=== PATIENT | male | born 1965 | race Two or more races ===

== ENCOUNTER 2024-05-24 19:31 | Inpatient (IN) | payer MEDICAID, OTHER ==
[~2024-05-24] VITALS: Ht 177.8 cm; Wt 85.6 kg
--- NOTE | 2024-05-24 19:55 | ED.PDOC ---
History of Present Illness HPI Comments 63-year-old male who came to ER via EMS due to shortness of breath. Patient, does have history of hypertension, diabetes, congestive heart failure, liver disease, end-stage renal disease currently on dialysis every Tuesday, Tuesday, and Tuesday. Patient also able to get his dialysis session yesterday because of the holidays. Few hours ago, patient is started becoming short of breath, be generalized weakness, fatigability, abdominal distention any worsening bipedal edema. Saturating 70% on room air, with a blood pressure of 90/58 mmHg Chief Complaint: Shortness of Breath Time Seen by MD: 19:55 Reviewed Notes: [place] Notes Allergies: Coded Allergies: NO KNOWN ALLERGIES (Unverified , 05/24/24) Information Source: Patient, Emergency Med Personnel Mode of Arrival: EMS Severity: Moderate Timing: Hours Duration: Since onset Prehospital treatment: Oxygen Past Medical History PAST MEDICAL HISTORY: CHF, DM, ESRD, HTN, Liver Surgical History (Other): Dialysis every Tuesday Family History Family History: Reviewed,noncontributory to illness Social History Smoker: Non-Smoker Alcohol: Denies ETOH Use Drugs: Denies Drug Use Lives In: Home Constitutional: reports: fatigue, weakness; denies: chills, diaphoresis, fever, malaise, sweats, others EENTM: denies: blurred vision, double vision, ear bleeding, ear discharge, ear drainage, ear pain, ear ringing, eye pain, eye redness, hearing loss, mouth pain, mouth swelling, nasal discharge, nose bleeding, nose congestion, nose pain, photophobia, tearing, throat pain, throat swelling, voice changes, others Respiratory: reports: SOB at rest, shortness of breath; denies: cough, h emoptysis, orthopnea, SOB with excertion, stridor, wheezing, others Cardiovascular: denies: chest pain, dizzy spells, diaphoresis, Dyspnea on exertion, edema, irregular heart beat, left arm pain, lightheadedness, palpitations, PND, syncope, others Gastrointestinal: reports: abdomen distended, abdominal pain; denies: blood streaked bowels, constipated, diarrhea, dysphagia, difficulty swallowing, hematemesis, melena, nausea, poor appetite, poor fluid intake, rectal bleeding, rectal pain, vomiting, others Genitourinary: denies: burning, dysuria, flank pain, frequency, hematuria, incontinence, penile discharge, penile sore, pain, testicle pain, testicle sw elling, urgency, others Neurological: denies: dizziness, fainting, headache, left sided numbness, left sided weakness, numbness, paresthesia, pre-existing deficit, right sided numbness, right sided weakness, seizure, speech problems, tingling, tremors, weakness, others Musculoskeletal: denies: back pain, gout, joint pain, joint swelling, muscle pain, muscle stiffness, neck pain, others Integumetry: denies: bruises, change in color, change in hair/nails, dryness, laceration, lesions, lumps, rash, wounds, others Allergic/Immunocompromised: denies: Difficulty Healing, Frequent Infections, Hives, Itching, others Hematologic/Lymphatic: denies: anemia, blood clots, easy bleeding, easy bruising, swollen glands, others Endocrine: denies: excessive hunger, excessive sweating, excessive thirst, excessive urination, flushing, intolerance to cold, intolerance to heat, unexplained weight gain, unexplained weight loss, others Psychiatric: denies: anxiety, bipolar disorder, depression, hopeless, panic disorder, schizophrenia, sleepless, suicidal, others Physical Exam General Appearance: No Apparent Distress, Normal HEENT: Normal ENT Inspection, Pharynx Normal, TMs Normal Neck: Full Range of Motion, Non-Tender, Normal, Normal Inspection Respiratory: Chest Non-Tender, Lungs Clear, No Accessory Muscle Use, No Respiratory Distress, Normal Breath Sounds Cardiovascular: No Edema, No JVD, No Murmur, No Gallop, Normal Peripheral Pulses, Regular Rate/Rhythm Breast Exam: Deferred Gastrointestinal: No Organomegaly, Non Tender, No Pulsatile Mass, Normal Bowel Sounds, Soft Genitalia: Deferred Pelvic: Deferred Rectal: Deferred Extremities: No calf tenderness, Normal capillary refill, Normal inspection, Normal range of motion, Non-tender, No pedal edema Musculoskeletal : Apperance: Normal Neurologic: Alert, hotel concierge II-XII nml as Tested, No Motor Deficits, Normal Affect, Normal Mood, No Sensory Deficits Cerebellar Function: Normal Reflexes: Normal Skin: Dry, Normal Color, Warm Lymphatic: No Adenopathy Was a procedure done? Was a procedure done?: No Differential Dx Considerations may include: Anemia, electrolyte imbalance, congestive heart failure, pneumonia, end-stage renal disease, sepsis X-Ray, Labs, Meds, VS Vital Signs Date Time Temp Pulse Resp B/P (MAP) Pulse Ox O2 Delivery O2 Flow Rate FiO2 05/24/24 19:44 77 05/24/24 19:31 97.8 77 24 90/58 (69) 95 Lab Test 05/24/24 21:08 05/24/24 21:00 Range/Units White Blood Count 5.8 4.4-10.8 10^3/uL Red Blood Count 3.31 L 4.5-5.90 10^6/uL Hemoglobin 8.0 L 13.5-17.5 g/dL Hematocrit 25.3 L 41.0-53.0 % Mean Corpuscular Volume 76.3 L 80.0-100.0 fL Mean Corpuscular Hemoglobin 24.1 L 28.0-32.0 pg Mean Corpuscular Hemoglobin Concent 31.6 L 32.0-36.0 g/dL Red Cell Distribution Width 27.6 H 11.8-14.3 % Platelet Count 224 140-450 10^3/uL Mean Platelet Volume 8.4 6.9-10.8 fL Neutrophils (%) (Auto) 82.0 H 37.0-80.0 % Lymphocytes (%) (Auto) 6.6 L 10.0-50.0 % Monocytes (%) (Auto) 9.2 0.0-12.0 % Eosinophils (%) (Auto) 1.8 0.0-7.0 % Basophils (%) (Auto) 0.4 0.0-2.0 % Neutrophils # (Auto) 4.8 1.6-8.6 10 ^3/uL Lymphocytes # (Auto) 0.4 0.4-5.4 10 ^3/uL Monocytes # (Auto) 0.5 0-1.3 10 ^3/uL Eosinophils # (Auto) 0.1 0-0.8 10 ^3/uL Basophils # (Auto) 0 0-0.2 10 ^3/uL Nucleated Red Blood Cells 0.3 % Platelet Estimate Pending Prothrombin Time 12.0 H 9.3-11.8 sec Prothrombin Time INR 1.14 0.9-1.15 Activated Partial Thromboplast Time 30.3 24.5-34.5 SEC Sodium Level 139 136-145 mmol/L Potassium Level 5.5 H 3.5-5.1 mmol/L Chloride Level 106 98-107 mmol/L Carbon Dioxide Level 25 20-31 mmol/L Anion Gap 8 5-15 Blood Urea Nitrogen 66 H 9-23 mg/dL Creatinine 6.67 H 0.700-1.30 mg/dL Glomerular Filtration Rate Calc 9 >90 mL/min BUN/Creatinine Ratio 9.9 L 10.0-20.0 Serum Glucose 82 74-106 mg/dL Calcium Level 8.4 L 8.7-10.4 mg/dL Magnesium Level 1.8 1.6-2.6 mg/dL Total Bilirubin < 0.2 L 0.2-1.0 mg/dL Aspartate Amino Transferase (AST) 22 13-40 U/L Alanine Aminotransferase (ALT) 16 7-40 U/L Alkaline Phosphatase 70 46-116 U/L Troponin I High Sensitivity 18 </=54 ng/L B-Type Natriuretic Peptide 2239.06 0-100 pg/mL Total Protein 5.4 L 5.7-8.2 g/dL Albumin 2.8 L 3.2-4.8 g/dL Lactic Acid Level 1.6 0.4-2.0 mmol/L CHEST RADIOGRAPH Indication: SOB Technique: Single frontal view of the chest was obtained COMPARISON: None FINDINGS: Lines and Tubes: Tunneled right central venous catheter in satisfactory position. Lungs: Multifocal airspace disease. Pleura: No effusion. No pneumothorax. Cardiomediastinal contours: Cardiomegaly Bones: Unremarkable IMPRESSION: Pulmonary edema and/or multifocal infection. Time of 1ST Reevaluation: 19:50 Reevaluation 1ST: Unchanged Time of 2ND Reevaluation: 22:05 Reevaluation 2ND: Unchanged Patient Education/Counseling: Diagnosis, Treatment Family Education/Counseling: No Family Present Departure 1 Departure Time of Disposition: 22:05 Impression: Primary Impression: Chronic kidney disease with end stage renal failure on dialysis Additional Impressions: Respiratory failure with hypoxia Fluid overload Disposition: ADMITTED INPATIENT Admit to: ICU Condition: Critical Discharged With: Self Critical Care Note Critical Care Time?: Yes (35 min-critical care time only) Critical care comment: Shortness of breath Total critical care time: Approximately 36 minutes Due to a high probability of clinically significant, life threatening deterioration, the patient required my highest level of preparedness to intervene emergently and I personally spent this critical care time directly and personally managing the patient. This critical care time included obtaining a hi story; examining the patient; pulse oximetry; ordering and review of studies; arranging urgent treatment with development of a management plan; evaluation of patient's response to treatment; frequent reassessment; and, discussions with other providers. This critical care time was performed to assess and manage the high probability of imminent, life-threatening deterioration that could result in multi-organ failure. It was exclusive of separately billable procedures and treating other patients. Stability Stability form required: No Heart Score Heart Score: Heart Score Response (Comments) Value History Moderate Suspicious 1 EKG Repolarization Disturb 1 Age 45-64 1 Risk Factors >3 or Hx ASHD 2 Troponin 1-2 x's Normal limit 1 Total 6 I personally scribed for JAMES KLINE MD ([email or web address]) on 05/24/24 at 19:55. Electronically submitted by Сергей Purdy ([email or web address]). I personally scribed for JAMES KLINE MD ([email or web address]) on 05/24/24 at 20:48. Electronically submitted by Сергей Purdy ([email or web address]). JAMES KLINE MD May 24, 2024 19:55
--- NOTE | 2024-05-24 20:23 | DVH ---
CHEST RADIOGRAPH Indication: SOB Technique: Single frontal view of the chest was obtained COMPARISON: None FINDINGS: Lines and Tubes: Tunneled right central venous catheter in satisfactory position. Lungs: Multifocal airspace disease. Pleura: No effusion. No pneumothorax. Cardiomediastinal contours: Cardiomegaly Bones: Unremarkable IMPRESSION: Pulmonary edema and/or multifocal infection.
[2024-05-24] MEDS: FUROSEMIDE 40 MG/4 ML VIAL IV ONE (20:45)
[2024-05-24 21:34] LABS: Basophils # (auto) 0 10 ^3/uL (0-0.2); Eosinophils # (auto) 0.1 10 ^3/uL (0-0.8); Lymphocytes # (auto) 0.4 10 ^3/uL (0.4-5.4); Monocytes # (auto) 0.5 10 ^3/uL (0-1.3); Nucleated Red Blood Cells % 0.3 %; White Blood Cell 5.8 10^3/uL (4.4-10.8)
[2024-05-24 21:35] LABS: Basophils % (auto) 0.4 % (0.0-2.0); Eosinophils % (auto) 1.8 % (0.0-7.0); Hematocrit 25.3 % (41.0-53.0); Lymphocytes % (auto) 6.6 % (10.0-50.0); Mean Corpuscular Hemoglobin 24.1 pg (28.0-32.0); Mean Corpuscular Hgb Conc. 31.6 g/dL (32.0-36.0); Mean Corpuscular Volume 76.3 fL (80.0-100.0); Monocytes % (auto) 9.2 % (0.0-12.0); Neutrophils # (auto) 4.8 10 ^3/uL (1.6-8.6); Platelet Count (auto) 224 10^3/uL (140-450); Red Blood Cells 3.31 10^6/uL (4.5-5.90)
[2024-05-24 21:40] LABS: Alanine Aminotransferase 16 U/L (7-40); Alkaline Phosphatase 70 U/L (46-116); Anion Gap 8 (5-15); Aspartate Aminotransferase 22 U/L (13-40); BUN/Creatinine Ratio 9.9 (10.0-20.0); Carbon Dioxide 25 mmol/L (20-31); Chloride 106 mmol/L (98-107); Glucose 82 mg/dL (74-106); Magnesium 1.8 mg/dL (1.6-2.6); Sodium 139 mmol/L (136-145)
[2024-05-24 21:42] LABS: Albumin 2.8 g/dL (3.2-4.8); Bilirubin, Total < 0.2 mg/dL (0.2-1.0); Blood Urea Nitrogen 66 mg/dL (9-23); Calcium 8.4 mg/dL (8.7-10.4); Potassium 5.5 mmol/L (3.5-5.1); Total Protein 5.4 g/dL (5.7-8.2)
[2024-05-24 21:43] LABS: INR 1.14 (0.9-1.15); Partial Thromboplastin Time 30.3 SEC (24.5-34.5); Red Cell Distribution Width 27.6 % (11.8-14.3)
[2024-05-24 23:00] VITALS: PULSE 76; RESP 22; O2SAT 100
[2024-05-24 23:08] LABS: Anisocytosis Slight; Hypochromia Moderate
--- NOTE | 2024-05-24 23:09 | DVHHPRES ---
History of Present Illness Resident Creating Document: BECCA NIELSEN History of Present Illness This is a 58-year-old male with past medical history of hypertension, type 2 diabetes mellitus, Liver cirrhosis likely due to HEP C, end-stage renal disease recently started on hemodialysis (Tuesday, Tuesday and Tuesday), suspected CHF, presented to the ED due to acute shortness of breath and abdominal tenderness. Patient states that his last hemodialysis was last Tuesday (1week ago). The patient states that 1 day ago he started presenting acute periumbilical epi gastric pain rated as 4/10 on the pain scale associated with mild shortness of breath. The patient was recently discharged from our facility on May 17 where paracentesis was performed and 7 L of fluid were removed at that time. the patient has been admitted multiple times due to similar symptoms. We will admit the patient for further assessment and management. Cardiovascular: CHF, HTN Renal/: Chronic renal insuff (End-stage renal disease on hemodialysis) Endocrine: Diabetes Past Surgical History: None Family History: None Smoke: <1 pack per day ALCOHOL: none Drugs: None Lives: with Family Domestic Violence: Neg Review of Systems Constitutional: Yes: Malaise; No: Fever, Chills, Sweats, Weakness, Other Eyes: No: Pain, Vision change, Conjunctivae inflammation, Eyelid inflammation, Other, Redness ENT: No: Ear pain, Ear discharge, Nose pain, Nose discharge, Nose congestion, Mouth pain, Mouth swelling, Throat pain, Throat swelling, Other Respiratory: Cough, Shortness of breath, SOB with excertion; No: Dry, Wheezing, Hemoptysis, Pleuritic Pain, Sputum, Wheezing, Other Cardiovascular: Edema; No: Chest Pain, Palpitations, Orthopnea, Paroxysmal Noc. Dyspnea, Lt Headedness, Other Gastrointestinal: Abdominal Pain; No: Nausea, Vomiting, Diarrhea, Constipation, Melena, Hematochezia, Other Genitourinary: No Dysuria, No Frequency, No Incontinence, No Hematuria, No Retention, No Other Musculoskeletal: No: other, neck pain, shoulder pain, arm pain, back pain, hand pain, leg pain, foot pain Skin: No: Rash, Lesions, Jaundice, Bruising, Other Neurological: Weakness, Confusion; No: Numbness, Incoordination, Change in speech, Seizures, Other Allergies: Coded Allergies: NO KNOWN ALLERGIES (Unverified , 05/24/24) Exam Vital Signs Vital Signs Date Time Temp Pulse Resp B/P (MAP) Pulse Ox O2 Delivery O2 Flow Rate FiO2 05/24/24 19:44 77 05/24/24 19:31 97.8 24 90/58 (69) 95 General Appearance: Alert, Oriented X3, moderate distress HEENT: Atraumatic, PERRLA, EOMI, Mucous membr. moist/pink Respiratory: Normal air movement Cardiovascular: Regular rate, Normal S1, No murmurs Abdominal: Normal bowel sounds, Other (Abdominal distention with periumbilical and epigastric pain to palpation) Extremities: No clubbing, No cyanosis, Normal pulses, Other (Bilateral lower extremity edema) Skin: No rashes, No breakdown, No significant lesion Neuro: Normal gait, Strength at 5/5 X4 ext, Normal tone, Cranial nerves 3-12 NL, Reflexes 2+ Psych/Mental Status: Mood NL, Other (Alert but slightly confused but follow commands) Labs/Xrays Labs Test 05/24/24 22:00 05/24/24 21:08 05/24/24 21:00 Range/Units Troponin I High Sensitivity 18 </=54 ng/L White Blood Count 5.8 4.4-10.8 10^3/uL Red Blood Count 3.31 L 4.5-5.90 10^6/uL Hemoglobin 8.0 L 13.5-17.5 g/dL Hematocrit 25.3 L 41.0-53.0 % Mean Corpuscular Volume 76.3 L 80.0-100.0 fL Mean Corpuscular Hemoglobin 24.1 L 28.0-32.0 pg Mean Corpuscular Hemoglobin Concent 31.6 L 32.0-36.0 g/dL Red Cell Distribution Width 27.6 H 11.8-14.3 % Platelet Count 224 140-450 10^3/uL Mean Platelet Volume 8.4 6.9-10.8 fL Neutrophils (%) (Auto) 82.0 H 37.0-80.0 % Lymphocytes (%) (Auto) 6.6 L 10.0-50.0 % Monocytes (%) (Auto) 9.2 0.0-12.0 % Eosinophils (%) (Auto) 1.8 0.0-7.0 % Basophils (%) (Auto) 0.4 0.0-2.0 % Neutrophils # (Auto) 4.8 1.6-8.6 10 ^3/uL Lymphocytes # (Auto) 0.4 0.4-5.4 10 ^3/uL Monocytes # (Auto) 0.5 0-1.3 10 ^3/uL Eosinophils # (Auto) 0.1 0-0.8 10 ^3/uL Basophils # (Auto) 0 0-0.2 10 ^3/uL Nucleated Red Blood Cells 0.3 % Prothrombin Time 12.0 H 9.3-11.8 sec Prothrombin Time INR 1.14 0.9-1.15 Activated Partial Thromboplast Time 30.3 24.5-34.5 SEC Sodium Level 139 136-145 mmol/L Potassium Level 5.5 H 3.5-5.1 mmol/L Chloride Level 106 98-107 mmol/L Carbon Dioxide Level 25 20-31 mmol/L Anion Gap 8 5-15 Blood Urea Nitrogen 66 H 9-23 mg/dL Creatinine 6.67 H 0.700-1.30 mg/dL Glomerular Filtration Rate Calc 9 >90 mL/min BUN/Creatinine Ratio 9.9 L 10.0-20.0 Serum Glucose 82 74-106 mg/dL Calcium Level 8.4 L 8.7-10.4 mg/dL Magnesium Level 1.8 1.6-2.6 mg/dL Total Bilirubin < 0.2 L 0.2-1.0 mg/dL Aspartate Amino Transferase (AST) 22 13-40 U/L Alanine Aminotransferase (ALT) 16 7-40 U/L Alkaline Phosphatase 70 46-116 U/L B-Type Natriuretic Peptide 2239.06 0-100 pg/mL Total Protein 5.4 L 5.7-8.2 g/dL Albumin 2.8 L 3.2-4.8 g/dL Lactic Acid Level 1.6 0.4-2.0 mmol/L Assessment/Plan Assessment/Plan Assessment/Plan Acute hypoxic respiratory failure likely due to volume overload in the setting of missed HD and decompensated liver cirrhosis Possible Gram +/- bacterial pneumonia Acute abdominal pain with abdominal distention likely due to decompensated liver cirrhosis Acute metabolic encephalopathy, hepatic encephalopathy -MELD NA score 22 points, Child-mills score 10 points -patient recently started on HD (TUE-TUE-TUE) missed sessions (Last one 7 days ago) -Initial chest x ray showing pulm vasc congestion with likely interstitial infiltrates on right middle lobe -Ordered abd/pelvic CT scan -ordered ammonia levels, came back elevated at 44 -Ordered sputum culture/gram stain -Start midodrine 10mg TID -Start albumin 25gr -Start ceftriaxone IV 2 gr -Start azithromycin IV -start lactulose 30 cc b.i.d. -start spironolactone 25 mg daily -start furosemide 40 mg IV daily -Waiting for imaging studies for possible paracentesis Chronic microcytic hypochromic anemia likely due to ESRD -hemoglobin was 8.0 -ordered iron panel and ferritin -monitor H&H End-stage renal disease on hemodialysis (Tuesday, Tuesday, Tuesday) -last hemodialysis was seven days ago on Tuesday, patient missed couple of hemodialysis sessions -last creatinine was 6.67 and BUN 66 -consulted nephrology for hemodialysis Ruled out CHF -echocardiogram performed on May 15, 2024 showed an LVEF of 55% with a grade 1 diastolic dysfunction -BNP was 2239 most likely in the setting of volume overload Hyperkalemia in the setting of ESRD -potassium was 5.5 -hyperkalemia treatment with albuterol, insulin and dextrose. -monitor electrolytes closely Goals of care discussed with the patient at bedside, full code Plan discussed with Dr. Latham Plan discussed with: Patient My Orders Orders - BECCA NIELSEN RESIDENT Procedure Category Date Status Time Urinalysis LAB 05/24/24 Logged 22:35 *Dr. Shelton Armenta CONS 05/24/24 Transmitted -[place] 22:57 Ammonia LAB 05/24/24 Logged 22:57 Stool Occult Blood LAB 05/24/24 Logged 22:57 Ct Ab Pel Wo Con-No CT 05/24/24 Logged Oral Or Iv 22:57 Admit ADMIT 05/24/24 Transmitted 23:01 Code Status CODE 05/24/24 Transmitted 23:01 Vital Signs IZA 05/24/24 In Process 23:01 Review Orders With IZA 05/24/24 In Process Adm 23:01 Encourage Activity As IZA 05/24/24 In Process Tolerate 23:01 Npo (Nothing By DIET 05/25/24 Transmitted Mouth) Diet Breakfast Notify Of Changes IZA 05/24/24 In Process From Base 23:01 Advance Directive IZA 1/2/25 In Process 23:01 Echo 2d Mode Cardiac US 05/24/24 Logged DOP 23:01 Lipid Panel LAB 05/24/24 Logged 23:01 Patient Condition ORDERS 05/24/24 Transmitted 23:01 Allergies IZA 05/24/24 In Process 23:01 Hydrocodone-Acet PHA 05/24/24 Logged 5/325mg Tab ([place] 23:15 Drug Screen LAB 05/24/24 Logged 23:01 Hemoglobin A1c LAB 05/24/24 Logged 23:01 Iron Panel LAB 05/24/24 Transmitted 23:06 Ferritin LAB 05/24/24 Transmitted 23:06 Drug Screen LAB 05/24/24 Transmitted 23:07 Date of Service: May 24, 2024 Billing Provider: RANDALL LATHAM MD Common Visit Codes: [id number] INP/OBS CARE (HIGH) BECCA NIELSEN RESIDENT May 24, 2024 23:09 RANDALL LATHAM MD May 28, 2024 19:50
[2024-05-24 23:10] LABS: Ovalocytes MODE; Platelet Estimate Adequate; Tear Drop Cells FEW
[2024-05-24 23:59] LABS: Triglycerides 101 mg/dL (< 150)
[2024-05-25] VITALS (8 sets, daily range): BP systolic 90–124; BP diastolic 52–72; PULSE 62–80; RESP 10–20; TEMP 98.1; O2SAT 95–100
[2024-05-25] LABS: LDL Cholesterol 42 mg/dL (< 100)
[2024-05-25 00:01] LABS: Cholesterol 72 mg/dL (< 200)
[2024-05-25 00:02] LABS: % Iron Saturation 6.1 % (20-55)
[2024-05-25 00:07] LABS: HDL Cholesterol 21 mg/dL (40-59)
[2024-05-25] MEDS: cefTRIAXone 1GM/50ML D5W 50 ML IV ONE (00:51)
[2024-05-25] MEDS: MIDODRINE HCL 10 MG TAB PO SCH (01:15)
[2024-05-25] MEDS ORDERED: LACTULOSE 20Gm/30ML SOLN PO SCH (01:45)
[2024-05-25] MEDS: InsuLIN REG 1unit/0.01ml Soln (100units/ml) IV ONE ×2 (02:00→10:53)
[2024-05-25] MEDS: AZITHROMYCIN 500MG/ 250ML 250 ML IV ONE (02:03)
[2024-05-25] MEDS: ALBUMIN 25% 100 ML IV ONE ×3 (02:12→15:54)
[2024-05-25] MEDS: ALBUTEROL SULF 2.5 MG/0.5ML(0.5%) NEB SOLN NEB ONE (02:19)
--- NOTE | 2024-05-25 02:19 | DVH ---
Exam: CT CT AB PEL WO CON-NO ORAL OR IV History: acute abdominal pain r/o ascites Comparison Study: None available at time of dictation. Technique: Multidetector spiral CT of the abdomen was performed from lung bases to pubic symphysis. Imaging was performed without IV contrast. Axial, coronal and sagittal multiplanar reformats were ob tained from the axial data set by the technologist. Radiation Dose : 1. Abdomen/Pelvis: CTDIvol 23 mGy, DLP 1478 mGy*cm. Findings: Evaluation of solid organs is limited due to lack of intravenous contrast use. Lung Bases: Bilateral posterior lower lobe consolidations with air bronchograms. Liver: The liver is normal in size. No focal lesions. Nodular contour Gallbladder and Biliary Tree: Unremarkable Spleen: Splenomegaly. Pancreas: The pancreas is grossly normal in appearance. Adrenal Glands: Unremarkable Kidneys: Kidneys are grossly normal without calculi or hydronephrosis. Bladder: Grossly unremarkable for degree of distention. Bowel: The stomach is grossly normal in appearance. Diffuse colonic wall thickening. Diffuse small josef wel wall thickening. The appendix is not visualized; however, no secondary findings of acute appendic itis identified. Ascites: Moderate diffuse ascites. Lymphadenopathy: No mesenteric, retroperitoneal or periportal lymphadenopathy. Abdominal Wall and Mesentery: Moderate anasarca.. Vasculature: The visualized abdominal aorta is normal in size and caliber. Evaluation of abdominal a nd pelvic vessels is limited due to lack of intravenous contrast. Pelvic Organs: Unremarkable Musculoskeletal: No aggressive focal bony lesions, acute fractures or dislocation. IMPRESSION: Cirrhosis with sequelae of portal hypertension. Moderate diffuse anasarca and ascites. Diffuse colonic and small bowel wall thickening most likely du e to portal enterocolopathy and less likely due to infectious / inflammatory process. Bilateral posterior lower lobe consolidation with air bronchograms concerning for pneumonia END IMPRESSION:
[2024-05-25] MEDS: FUROSEMIDE 40 MG/4 ML VIAL IV SCH (02:30)
[2024-05-25] MEDS: DEXTROSE (50%) 50ML SYRG IV ONE ×3 (02:36→11:09)
[2024-05-25] MEDS: SPIRONOLACTONE 25 MG TAB PO SCH (02:40)
[2024-05-25] MEDS ORDERED: NOREPINEPHRINE 8 MG/250ML KIT 250 ML IV ONE (03:14)
[2024-05-25] MEDS: NOREPINEPHRINE 8 MG/250ML KIT 250 ML IV SCH (03:37)
[2024-05-25 04:38] LABS: Base Excess -4.9 mmol/L (-2.0-3.0)
[2024-05-25] MEDS: LACTULOSE 20Gm/30ML SOLN NG SCH (06:00)
--- NOTE | 2024-05-25 06:14 | ECG ---
[facility] Test Date: 2024-05-24 Test Time: 19:44:49 Pat Name: RONEY ROWAN Department: ER Room: [address] [place] [address] Gender: M Data Developer: ELENI : 1965 Requested By: JAMES KLINE Order Number: [id number] Reading MD: Navid Benjamin Measurements Intervals [place] Rate: 77 P: 45 DC: 139 QRS: 42 QRSD: 77 T: 5 QT: 355 QTc: 402 Interpretive Statements Sinus rhythm Low voltage, extremity leads Electronically Signed On 05-25-2024 12:09:32 PST by Navid Benjamin Please click the below link to view image of tracing.
[2024-05-25 07:51] LABS: Base Excess -3.9 mmol/L (-2.0-3.0)
--- NOTE | 2024-05-25 07:57 | DVH ---
ULTRASOUND ABDOMEN limited, 4 QUADRANTS INDICATION: FLUID CHECK FOR POSSIBLE PARACENTESIS Evaluate for ascites. TECHNIQUE: The four quadrants of the abdomen were scanned in hamm-scale to assess for the presence of ascites. N o solid organ assessment was performed. FINDINGS/IMPRESSIONS: There is small to moderate volume ascites in all 4 abdominal quadrants. Bilateral pleural effusions are present. HS:Y
[2024-05-25 08:05] LABS: Alanine Aminotransferase 16 U/L (7-40); Alkaline Phosphatase 64 U/L (46-116); Anion Gap 7 (5-15); Aspartate Aminotransferase 23 U/L (13-40); BUN/Creatinine Ratio 9.9 (10.0-20.0); Carbon Dioxide 26 mmol/L (20-31); Chloride 105 mmol/L (98-107); Sodium 138 mmol/L (136-145)
[2024-05-25 08:06] LABS: Basophils # (auto) 0 10 ^3/uL (0-0.2); Eosinophils # (auto) 0.2 10 ^3/uL (0-0.8); Hematocrit 26.6 % (41.0-53.0); Hemoglobin 8.3 g/dL (13.5-17.5); Lymphocytes # (auto) 0.4 10 ^3/uL (0.4-5.4); Monocytes # (auto) 0.5 10 ^3/uL (0-1.3); Total Protein 5.8 g/dL (5.7-8.2); White Blood Cell 5.1 10^3/uL (4.4-10.8)
[2024-05-25 08:08] LABS: Basophils % (auto) 0.3 % (0.0-2.0); Eosinophils % (auto) 3.1 % (0.0-7.0); Lymphocytes % (auto) 7.5 % (10.0-50.0); Mean Corpuscular Hemoglobin 24.1 pg (28.0-32.0); Mean Corpuscular Hgb Conc. 31.3 g/dL (32.0-36.0); Mean Corpuscular Volume 76.8 fL (80.0-100.0); Monocytes % (auto) 9.6 % (0.0-12.0); Neutrophils % (auto) 79.5 % (37.0-80.0); Nucleated Red Blood Cells % 0.3 %; Platelet Count (auto) 270 10^3/uL (140-450); Red Blood Cells 3.47 10^6/uL (4.5-5.90)
[2024-05-25 08:14] LABS: Red Cell Distribution Width 27.7 % (11.8-14.3)
[2024-05-25 08:19] LABS: Albumin 3.1 g/dL (3.2-4.8); Bilirubin, Total 0.2 mg/dL (0.2-1.0); Blood Urea Nitrogen 68 mg/dL (9-23); Calcium 8.4 mg/dL (8.7-10.4); Glucose 52 mg/dL (74-106)
[2024-05-25 08:22] LABS: Potassium 5.7 mmol/L (3.5-5.1)
--- NOTE | 2024-05-25 09:36 | DVHINCON2 ---
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 HE was discharged to continue outpatient HD for EVE. His other hx includes etoh cirrhosis, hep C, thrombocytopina, anemia and ascites w/ previous paracentesis. He comes complaining of SOB after missing several days of dialysis. He is currently on biPAP Allergies: Coded Allergies: NO KNOWN ALLERGIES (Unverified , 05/24/24) Current Medications Current Medications Medications (Trade) Dose Ordered Sig/Debra Route PRN Reason Start Time Stop Time Status Last Admin Acetaminophen/ Hydrocodone Bitart ([place] 5/325MG Tab) 1 tab Q4HP PRN PO MODERATE PAIN (4-6 PAIN SCALE) 05/24/24 23:15 Midodrine (Proamatine Tablet) 10 mg TID@0600,1200,1800 PO 05/25/24 01:15 Lactulose 30 ml BID PO 05/25/24 01:45 05/25/24 03:33 DC Ceftriaxone Sodium/Dextrose 50 ml @ 50 mls/hr DAILY IV 05/26/24 10:00 Azithromycin 250 ml @ 125 mls/hr DAILY IV 05/25/24 10:00 Furosemide (Lasix Injection) 40 mg DAILY IV 05/25/24 02:30 05/25/24 02:30 Spironolactone (Aldactone) 25 mg DAILY PO 05/25/24 02:40 Norepinephrine Bitartrate 250 ml @ 3.75 mls/hr Q24H IV 05/25/24 03:15 05/25/24 03:37 Lactulose 30 ml Q6HR NG 05/25/24 06:00 05/25/24 06:00 Pantoprazole Sodium (Protonix) 40 mg BID IV 05/25/24 10:00 Review of Systems SOB H&P Exam Vital Signs/I&O Vital Sign Date Time Temp Pulse Resp B/P (MAP) Pulse Ox O2 Delivery O2 Flow Rate FiO2 05/25/24 08:18 72 124/72 96 Facial BiPAP Mask 45 05/25/24 07:00 25 05/25/24 02:19 15 05/24/24 23:00 98.1 98.1 Intake and Output 05/24/24 05/25/24 19:00 07:00 Intake Total 150 ml Balance 150 ml Intake IV Total 150 ml Physical Exam young male in respiratory distress on bipap distended abd + JVD rrr 2+ pitting edema Labs/Diagnostic Data Labs/Diagnostic Data Laboratory Tests Test 05/25/24 07:41 05/25/24 07:05 05/25/24 03:53 05/24/24 23:20 Range/Units Blood Gas Specimen Type Arterial Arterial Blood Gas Sample Site Left radial Right radial Blood Gas Patient Temperature 37.0 37.0 Arterial Blood Date Drawn [id number] Arterial Blood pH 7.250 L 7.181 *L 7.350-7.450 Arterial Blood Partial Pressure CO2 54.6 H 65.1 *H 35.0-48.0 mmHg Arterial Blood Partial Pressure O2 60.4 L 74.4 L 83.0-108.0 mmHg Arterial Blood HCO3 23.4 23.8 21.0-28.0 mmol/L Arterial Blood Oxygen Saturation 87.7 L 91.9 L 94.0-98.0 % Arterial Blood Base Excess -3.9 L -4.9 L -2.0-3.0 mmol/L Arterial Blood Oxyhemoglobin 86.4 L 90.9 L 94.0-98.0 % Arterial Blood Carboxyhemoglobin 0.7 0.6 0.5-1.5 % Arterial Blood Methemoglobin 0.8 0.5 0.0-1.5 % Parth Test Yes Yes Blood Gas Total Hemoglobin 9.00 L 9.70 L 13.5-17.5 g/dL Blood Gas Set Respiration Rate 12.0 Blood Gas Modality Mask - bipap Nasal cannula FiO2 % 45.0 36.0 Blood Gas EPAP 6 Blood Gas IPAP 18 White Blood Count 5.1 4.4-10.8 10^3/uL Red Blood Count 3.47 L 4.5-5.90 10^6/uL Hemoglobin 8.3 L 13.5-17.5 g/dL Hematocrit 26.6 L 41.0-53.0 % Mean Corpuscular Volume 76.8 L 80.0-100.0 fL Mean Corpuscular Hemoglobin 24.1 L 28.0-32.0 pg Mean Corpuscular Hemoglobin Concent 31.3 L 32.0-36.0 g/dL Red Cell Distribution Width 27.7 H 11.8-14.3 % Platelet Count 270 140-450 10^3/uL Mean Platelet Volume 7.7 6.9-10.8 fL Neutrophils (%) (Auto) 79.5 37.0-80.0 % Lymphocytes (%) (Auto) 7.5 L 10.0-50.0 % Monocytes (%) (Auto) 9.6 0.0-12.0 % Eosinophils (%) (Auto) 3.1 0.0-7.0 % Basophils (%) (Auto) 0.3 0.0-2.0 % Neutrophils # (Auto) 4.0 1.6-8.6 10 ^3/uL Lymphocytes # (Auto) 0.4 0.4-5.4 10 ^3/uL Monocytes # (Auto) 0.5 0-1.3 10 ^3/uL Eosinophils # (Auto) 0.2 0-0.8 10 ^3/uL Basophils # (Auto) 0 0-0.2 10 ^3/uL Nucleated Red Blood Cells 0.3 % Sodium Level 138 136-145 mmol/L Potassium Level 5.7 *H 3.5-5.1 mmol/L Chloride Level 105 98-107 mmol/L Carbon Dioxide Level 26 20-31 mmol/L Anion Gap 7 5-15 Blood Urea Nitrogen 68 H 9-23 mg/dL Creatinine 6.86 H 0.700-1.30 mg/dL Glomerular Filtration Rate Calc 9 >90 mL/min BUN/Creatinine Ratio 9.9 L 10.0-20.0 Serum Glucose 52 L 74-106 mg/dL Calcium Level 8.4 L 8.7-10.4 mg/dL Total Bilirubin 0.2 0.2-1.0 mg/dL Aspartate Amino Transferase (AST) 23 13-40 U/L Alanine Aminotransferase (ALT) 16 7-40 U/L Alkaline Phosphatase 64 46-116 U/L Ammonia 48 H 44 H 11-32 umol/L Total Protein 5.8 5.7-8.2 g/dL Albumin 3.1 L 3.2-4.8 g/dL Blood Gas Liter Flow 4.00 Blood Gas Critical Value Read Back Yes Blood Gas Notified Whom Beni taylor md Blood Gas Notified Time [id number] Blood Gas Notified By Jason bronson rrt Hemoglobin A1c 7.1 H <5.7 % A1C Iron Level 11 L 65-175 ug/dL Total Iron Binding Capacity 180 L 250-425 ug/dL Percent Iron Saturation 6.1 L 20-55 % Ferritin 36.3 22-322 ng/mL Triglycerides Level 101 < 150 mg/dL Cholesterol Level 72 < 200 mg/dL LDL Cholesterol 42 < 100 mg/dL HDL Cholesterol 21 L 40-59 mg/dL Test 05/24/24 22:00 05/24/24 21:08 05/24/24 21:00 Range/Units Troponin I High Sensitivity 18 18 </=54 ng/L White Blood Count 5.8 4.4-10.8 10^3/uL Red Blood Count 3.31 L 4.5-5.90 10^6/uL Hemoglobin 8.0 L 13.5-17.5 g/dL Hematocrit 25.3 L 41.0-53.0 % Mean Corpuscular Volume 76.3 L 80.0-100.0 fL Mean Corpuscular Hemoglobin 24.1 L 28.0-32.0 pg Mean Corpuscular Hemoglobin Concent 31.6 L 32.0-36.0 g/dL Red Cell Distribution Width 27.6 H 11.8-14.3 % Platelet Count 224 140-450 10^3/uL Mean Platelet Volume 8.4 6.9-10.8 fL Neutrophils (%) (Auto) 82.0 H 37.0-80.0 % Lymphocytes (%) (Auto) 6.6 L 10.0-50.0 % Monocytes (%) (Auto) 9.2 0.0-12.0 % Eosinophils (%) (Auto) 1.8 0.0-7.0 % Basophils (%) (Auto) 0.4 0.0-2.0 % Neutrophils # (Auto) 4.8 1.6-8.6 10 ^3/uL Lymphocytes # (Auto) 0.4 0.4-5.4 10 ^3/uL Monocytes # (Auto) 0.5 0-1.3 10 ^3/uL Eosinophils # (Auto) 0.1 0-0.8 10 ^3/uL Basophils # (Auto) 0 0-0.2 10 ^3/uL Nucleated Red Blood Cells 0.3 % Platelet Estimate Adequate Red Blood Cell Morphology Hypochromasia (manual) Moderate Anisocytosis (manual) Slight Microcytosis Slight Tear Drop Cells Few Ovalocytes Mode Beatriz Cells Few Schistocytes Few Prothrombin Time 12.0 H 9.3-11.8 sec Prothrombin Time INR 1.14 0.9-1.15 Activated Partial Thromboplast Time 30.3 24.5-34.5 SEC Sodium Level 139 136-145 mmol/L Potassium Level 5.5 H 3.5-5.1 mmol/L Chloride Level 106 98-107 mmol/L Carbon Dioxide Level 25 20-31 mmol/L Anion Gap 8 5-15 Blood Urea Nitrogen 66 H 9-23 mg/dL Creatinine 6.67 H 0.700-1.30 mg/dL Glomerular Filtration Rate Calc 9 >90 mL/min BUN/Creatinine Ratio 9.9 L 10.0-20.0 Serum Glucose 82 74-106 mg/dL Calcium Level 8.4 L 8.7-10.4 mg/dL Magnesium Level 1.8 1.6-2.6 mg/dL Total Bilirubin < 0.2 L 0.2-1.0 mg/dL Aspartate Amino Transferase (AST) 22 13-40 U/L Alanine Aminotransferase (ALT) 16 7-40 U/L Alkaline Phosphatase 70 46-116 U/L B-Type Natriuretic Peptide 2239.06 0-100 pg/mL Total Protein 5.4 L 5.7-8.2 g/dL Albumin 2.8 L 3.2-4.8 g/dL Lactic Acid Level 1.6 0.4-2.0 mmol/L Assessment EVE on Ckd curently on dialysis b/c not recovered noncompliance with dialysis hyperkalemia CHF decompensated cirrhosis anemia due to iron deficiency fluid overload ascites pending para lactulose HD today, 3L fluid removal, 2K bath albumin for support epogen, IV iron x 5 days fluid restrict, low salt renal diet phos binder Plan discussed with: Patient NATALIYAElKIERA MD May 25, 2024 09:36
[2024-05-25] MEDS: CALCIUM GLUC 1,000mg/50ml-NS 50 ML IV ONE (10:11)
[2024-05-25] MEDS: SODIUM ZIRCONIUM CYCL 10 GM PAK PO ONE (10:54)
[2024-05-25] MEDS: PANTOPRAZOLE 40 MG/10 ML VIAL INJ IV SCH (10:54)
[2024-05-25] MEDS ORDERED: DEXTROSE 50% SYRINGE 50 ML IV ONE (11:09)
[2024-05-25] MEDS: DEXTROSE 10% 1,000 ML IV SCH (11:30)
--- NOTE | 2024-05-25 11:34 | DVH ---
US PARACENTESIS, HISTORY: ASCITES PROCEDURE: Informed consent was obtained. The patient was placed in supine position. A limited locali zation ultrasound of the abdomen was obtained, and the skin site over the largest pocket of fluid was marked and entry site was prepped with chlorhexidine which was allowed to dry and draped in the usua l sterile fashion. Time out was performed. Following administration of 1% lidocaine local anesthetic, a 5 [place] centesis needle catheter was percutaneously inserted into the peritoneal collection until fluid was aspirated. The catheter was advanced into the fluid collection and the needle removed. Abo [place] 6000 cc of fluid was aspirated and specimen sent for appropriate cultures/cytology/cultures and cy tology. The catheter was then removed and a sterile dressing applied. No immediate complication was identified. FINDINGS: Limited ultrasound imaging demonstrates moderate ascites. Aspirated fluid was clear and ser ous. IMPRESSION: US-guided paracentesis with 6L removed.
[2024-05-25 11:38] LABS: Base Excess -4.9 mmol/L (-2.0-3.0)
[2024-05-25] MEDS ORDERED: NALOXONE HCL 0.4 MG/ML VIAL ONE (11:45)
[2024-05-25] MEDS: NALOXONE HCL 0.4 MG/ML VIAL IV ONE (11:46)
[2024-05-25] MEDS: SODIUM CHL 0.9% 1000 ML BAG XX ONE (12:02)
[2024-05-25] MEDS: AZITHROMYCIN 500MG/ 250ML 250 ML IV SCH (12:31)
--- NOTE | 2024-05-25 12:31 | DVH ---
CHEST RADIOGRAPH Indication: SOB Technique: Single frontal view of the chest was obtained COMPARISON: XY CHEST PORTABLE on DOS: 05/24/24 FINDINGS: Lines and Tubes: Right tunneled central venous catheter in satisfactory position. Lungs: Multifocal airspace disease. Pleura: No effusion. No pneumothorax. Cardiomediastinal contours: Unremarkable Bones: Unremarkable IMPRESSION: Multifocal airspace disease versus pulmonary vascular congestion.
--- NOTE | 2024-05-25 12:32 | DVHINCON2 ---
GI Consult Consult Note GI consult note Date of Consultation: 05/25/2024 Chief Complaint: Decompensated liver cirrhosis with hepatic encephalopathy Referring Physician: Dr. Stokes H&P: 58-year-old male presented to ER with acute shortness of breath Patient has history of hypertension DM liver cirrhosis likely due to hepatitis-C , ESRD on hemodialysis, which patient has missed for one-week Patient on BiPAP machine, history from chart and residents at bedside Patient had given a history of periumbilical to epigastric pain. No nausea or vomiting. No history of hematemesis SP paracentesis 6L removed. SP paracentesis May 17, 7L removed Past Medical History: Cardiovascular: CHF, HTN Renal/: Chronic renal insuff (End-stage renal disease on hemodialysis) Endocrine: Diabetes Past Surgical History: None per chart Social History: Smoke: <1 pack per day ALCOHOL: none Drugs: None Lives: with Family Family History: Noncontributory Review of Systems: Constitutional: no fever, chill, weight loss HEENT: no eye pain, no hearing loss, no oral lesion, no scleral icterus Heart: no chest pain, no chest pressure Lung: no cough, no dyspnea with exertion Abdomen: see HPI Physical exam: General: Patient on BiPAP Chest: lung lovelace clear to auscultation Heart: RRR, no murmur Abdomen: Mild-distended, +BS Labs: Labs Test 05/25/24 11:32 05/25/24 10:35 05/25/24 07:05 05/25/24 03:53 Range/Units Blood Gas Specimen Type Arterial Blood Gas Sample Site Right radial Blood Gas Patient Temperature 37.0 Arterial Blood Date Drawn [id number] Arterial Blood pH 7.259 L 7.350-7.450 Arterial Blood Partial Pressure CO2 50.4 H 35.0-48.0 mmHg Arterial Blood Partial Pressure O2 105.5 83.0-108.0 mmHg Arterial Blood HCO3 22.1 21.0-28.0 mmol/L Arterial Blood Oxygen Saturation 97.2 94.0-98.0 % Arterial Blood Base Excess -4.9 L -2.0-3.0 mmol/L Arterial Blood Oxyhemoglobin 95.5 94.0-98.0 % Arterial Blood Carboxyhemoglobin 0.8 0.5-1.5 % Arterial Blood Methemoglobin 0.9 0.0-1.5 % Parth Test Yes Blood Gas Total Hemoglobin 8.80 L 13.5-17.5 g/dL Blood Gas Set Respiration Rate 12.0 Blood Gas Modality Mask - bipap FiO2 % 45.0 Blood Gas EPAP 6 Blood Gas IPAP 18 White Blood Count 5.1 4.4-10.8 10^3/uL Red Blood Count 3.47 L 4.5-5.90 10^6/uL Hemoglobin 8.3 L 13.5-17.5 g/dL Hematocrit 26.6 L 41.0-53.0 % Mean Corpuscular Volume 76.8 L 80.0-100.0 fL Mean Corpuscular Hemoglobin 24.1 L 28.0-32.0 pg Mean Corpuscular Hemoglobin Concent 31.3 L 32.0-36.0 g/dL Red Cell Distribution Width 27.7 H 11.8-14.3 % Platelet Count 270 140-450 10^3/uL Mean Platelet Volume 7.7 6.9-10.8 fL Neutrophils (%) (Auto) 79.5 37.0-80.0 % Lymphocytes (%) (Auto) 7.5 L 10.0-50.0 % Monocytes (%) (Auto) 9.6 0.0-12.0 % Eosinophils (%) (Auto) 3.1 0.0-7.0 % Basophils (%) (Auto) 0.3 0.0-2.0 % Neutrophils # (Auto) 4.0 1.6-8.6 10 ^3/uL Lymphocytes # (Auto) 0.4 0.4-5.4 10 ^3/uL Monocytes # (Auto) 0.5 0-1.3 10 ^3/uL Eosinophils # (Auto) 0.2 0-0.8 10 ^3/uL Basophils # (Auto) 0 0-0.2 10 ^3/uL Nucleated Red Blood Cells 0.3 % Sodium Level 138 136-145 mmol/L Potassium Level 5.7 *H 3.5-5.1 mmol/L Chloride Level 105 98-107 mmol/L Carbon Dioxide Level 26 20-31 mmol/L Anion Gap 7 5-15 Blood Urea Nitrogen 68 H 9-23 mg/dL Creatinine 6.86 H 0.700-1.30 mg/dL Glomerular Filtration Rate Calc 9 >90 mL/min BUN/Creatinine Ratio 9.9 L 10.0-20.0 Serum Glucose 52 L 74-106 mg/dL Calcium Level 8.4 L 8.7-10.4 mg/dL Total Bilirubin 0.2 0.2-1.0 mg/dL Aspartate Amino Transferase (AST) 23 13-40 U/L Alanine Aminotransferase (ALT) 16 7-40 U/L Alkaline Phosphatase 64 46-116 U/L Ammonia 48 H 11-32 umol/L Total Protein 5.8 5.7-8.2 g/dL Albumin 3.1 L 3.2-4.8 g/dL Blood Gas Liter Flow 4.00 Blood Gas Critical Value Read Back Yes Blood Gas Notified Whom Beni taylor md Blood Gas Notified Time [id number] Blood Gas Notified By Jason bronson finishing technician Test 05/24/24 23:20 05/24/24 22:00 05/24/24 21:08 05/24/24 21:00 Range/Units Hemoglobin A1c 7.1 H <5.7 % A1C Iron Level 11 L 65-175 ug/dL Total Iron Binding Capacity 180 L 250-425 ug/dL Percent Iron Saturation 6.1 L 20-55 % Ferritin 36.3 22-322 ng/mL Triglycerides Level 101 < 150 mg/dL Cholesterol Level 72 < 200 mg/dL LDL Cholesterol 42 < 100 mg/dL HDL Cholesterol 21 L 40-59 mg/dL Troponin I High Sensitivity 18 </=54 ng/L Platelet Estimate Adequate Red Blood Cell Morphology Hypochromasia (manual) Moderate Anisocytosis (manual) Slight Microcytosis Slight Tear Drop Cells Few Ovalocytes Mode Beatriz Cells Few Schistocytes Few Prothrombin Time 12.0 H 9.3-11.8 sec Prothrombin Time INR 1.14 0.9-1.15 Activated Partial Thromboplast Time 30.3 24.5-34.5 SEC Magnesium Level 1.8 1.6-2.6 mg/dL B-Type Natriuretic Peptide 2239.06 0-100 pg/mL Lactic Acid Level 1.6 0.4-2.0 mmol/L Imaging: CT abdomen pelvis IMPRESSION: Cirrhosis with sequelae of portal hypertension. Moderate diffuse anasarca and ascites. Diffuse colonic and small bowel wall thickening most likely due to portal enterocolopathy and less likely due to infectious / inflammatory process. Bilateral posterior lower lobe consolidation with air bronchograms concerning for pneumonia Abdominal ultrasound FINDINGS/IMPRESSIONS: There is small to moderate volume ascites in all 4 abdominal quadrants. Bilateral pleural effusions are present. Assessment: Acute hypoxic respiratory failure Liver cirrhosis Possible history of Hepatitis-C Ascites SP paracentesis, possible fluid overload with history of ESRD ESRD on hemodialysis, noncompliant Plan: Discussed with Dr. Fernando hepatitis panel pending Supportive care recommended at this time Plan discussed with RN and residents at bedside Thank you for this consult Date of Service: May 25, 2024 Billing Provider: THANH KEANE Common Visit Codes: CONSULT ONLY Consultation Codes: [id number] CONSULT <45MIN THANH KEANE May 25, 2024 12:32
--- NOTE | 2024-05-25 12:42 | DVHPNRES ---
Progress Note Date Seen: May 25, 2024 Resident Creating Document: QUAN RICHMOND RESIDENT Medical Necessity Reason Pt with a Central, PICC or Fol: Yes Subjective Review of Systems Patient is 58 years old male with past medical history of ESRD on hemodialysis Tuesday/Tuesday/Tuesday, noncompliant, hypertension, diabetes mellitus type 2, liver cirrhosis, likely due to hepatitis-C infection, heart failure with preserved ejection fraction, suspected COPD came in with a worsening short of breath and abdominal distention. Patient was recently discharged from [facility] after having paracentesis due to abdominal distention and shortness of breaths. Patient came back with a complaint of shortness of breath and abdominal distention. Initial lab workup revealed moderate to severe anemia with a hemoglobin 8.0, potassium 5.5, serum creatinine 6.67, blood sugar 52, HGB A1c 7.1, albumin 3.1, iron 11, TIBC 180, ferritin 16, ammonia 48. CXR-Pulmonary edema and/or multifocal infection. CT abdomen and Pelvis without contrast- Cirrhosis with sequelae of portal hypertension.Moderate diffuse anasarca and ascites. Diffuse colonic and small bowel wall thickening most likely due to portal enterocolopathy and less likely due to infectious / inflammatory process. Bilateral posterior lower lobe consolidation with air bronchograms concerning for pneumonia. There is small to moderate volume ascites in all 4 abdominal quadrants. Bilateral pleural effusions are present. Initial ABG on 05/25/24 at 353 revealed pH 7.181, partial pressure of carbon dioxide 65.1, partial pressure of oxygen 74.4, bicarbonate 23.8, ABG on 05/25/2024 at 7:41 a.m. revealed pH 7.25, versus pressure of carbon dioxide 54.6, partial pressure of oxygen 60.4, bicarbonate 23.4. Follow up ABG on 05/25/2024 at 1132 revealed pH 7.25, partial pressure of carbon dioxide 50.4, patient of oxygen 100.5, bicarbonate 22.1. PMH-ESRD on hemodialysis Tuesday/Tuesday/Tuesday, noncompliant, hypertension, diabetes mellitus type 2, liver cirrhosis, likely due to hepatitis-C infection, heart failure with preserved ejection fraction, suspected COPD Allergy- NKDA- Patient was seen today at the bedside. Patient's confusion details could not be obtained. Patient was seen today for clinical evaluation. Less than chart reviewed. Patient paracentesis and 6 L of fluid was removed. Patient is on BiPAP. Patient had recurrent hypoglycemic episode, emergently treated. Patient with altered mental status. Patient is due for hemodialysis today. Patient was seen by heat treat operator and kennel manager. Recommendation reviewed and appreciated Objective vital signs Vital Sign Date Time Temp Pulse Resp B/P (MAP) Pulse Ox O2 Delivery O2 Flow Rate FiO2 05/25/24 11:00 64 16 100/58 (72) 98 05/25/24 10:44 Facial BiPAP Mask 45 05/25/24 09:11 98.1 98.1 05/25/24 07:30 0 Total Intake and Output 05/24/24 05/24/24 05/25/24 15:00 23:00 07:00 Intake Total 150 ml Balance 150 ml medications Current Medications Medications Dose Ordered Sig/Debra Route Start Time Stop Time Status Last Admin Dose Admin Acetaminophen/ Hydrocodone Bitart 1 tab Q4HP PRN PO 05/24/24 23:15 Midodrine 10 mg TID@0600,1200,1800 PO 05/25/24 01:15 Ceftriaxone Sodium/Dextrose 50 ml @ 50 mls/hr DAILY IV 05/26/24 10:00 Azithromycin 250 ml @ 125 mls/hr DAILY IV 05/25/24 10:00 05/25/24 12:31 125 MLS/HR Furosemide 40 mg DAILY IV 05/25/24 02:30 05/25/24 02:30 40 MG Spironolactone 25 mg DAILY PO 05/25/24 02:40 Norepinephrine Bitartrate 250 ml @ 3.75 mls/hr Q24H IV 05/25/24 03:15 05/25/24 03:37 11.25 MLS/HR Lactulose 30 ml Q6HR NG 05/25/24 06:00 05/25/24 06:00 30 ML Pantoprazole Sodium 40 mg BID IV 05/25/24 10:00 05/25/24 10:54 40 MG Dextrose 1,000 ml @ 50 mls/hr Q20H IV 05/25/24 11:15 05/25/24 11:30 50 MLS/HR Examination General examination- tired looking, confusion, on respiratory distress, patient with TD catheter HEENT- PEERLA, no acute nasal discharge Cardiovascular- S1-S2 audible, rate and rhythm regular, no murmur Respiratory- bilateral reduced breath sound+, bilateral crackles+ Gastrointestinal-nontender, bowel sound+. Musculoskeletal-no acute joint swelling or tenderness or redness# Lower extremity- bilateral leg edema++ Neurological- cranial nerves intact, no acute dysarthria or dysphagia Psychiatry- denies depression or SI or HI Skin- no acute rash or purpura laboratory and microbiology Laboratory Tests 05/25/24 07:05 Test 05/25/24 07:05 Range/Units Serum Glucose 52 L 74-106 mg/dL Problem List/Assessment/Plan Problem List/Assessment/Plan Neurology : Metabolic likely due to ESRD/pneumonia Recurrent hypoglycemic episode, emergently treated, resolved Cardiovascular : Hypertension Heart failure with preserved ejection fraction Respiratory : Acute hypoxic respiratory failure Acute hypoxic respiratory failure likely due to volume overload in the setting of missed HD and decompensated liver cirrhosis Bilateral pleural effusion likely due to ESRD/heart failure Acute pneumonia Gram-positive versus Gram-negative Influenza type B Gastrointestinal : Cirrhosis of liver, likely decompensated cirrhosis of liver Suspected spontaneous bacterial peritonitis Rebound ascites Genitourinary : Infectious Disease : Pneumonia bacterial versus viral Endocrine : Diabetes mellitus type 2 Hematology : Moderately severe anemia likely due to ESRD Skin: Fragile skin with some ecchymosis Others: Respiratory acidosis Hypoalbuminemia Hyperkalemia likely due to ESRD Hyperammonemia likely due to cirrhosis of liver Nutrition : Renal diet End-stage renal disease on hemodialysis (Tuesday, Tuesday, Tuesday) -last hemodialysis was seven days ago on Tuesday, patient missed couple of hemodialysis sessions Hyperkalemia in the setting of ESRD -patient recently started on HD (TUE-TUE-TUE) missed sessions (Last one 7 days ago) -Initial chest x ray showing pulm vasc congestion with likely interstitial infiltrates on right middle lobe -echocardiogram performed on May 15, 2024 showed an LVEF of 55% with a grade 1 diastolic dysfunction -BNP was 2239 most likely in the setting of volume overload Maintain strict intake output chart. Renal diet, Patient was Scheduled for hemodialysis today Continue ceftriaxone 2 g IV daily Continue azithromycin 500 mg IV daily Continue Lasix 40 mg IV daily Continue lactulose 30 mL q.6h Continue spironolactone 25 mg p.o. daily Continue Tamiflu 75 mg p.o. b.i.d. Goals of care/advance care planning; FULL CODE; discussed with the patient >15 minutes Isolation precaution PUD prophylaxis: Pantoprazole DVT prophylaxis: Lovenox Plan discussed with Dr. Whyte, nursing staff, patient Total time spent on patient evaluation, chart review, assessment and plan, discussion discussion >30 minutes Plan discussed with: Patient Plan discussed with: Patient (RN), Other (RN) My Orders My Orders Orders - QUAN RICHMOND Procedure Category Date Status Time Dextrose 10% PHA 05/25/24 In Process 11:15 Abg W/ Co-Ox RT 05/25/24 Logged 11:24 Drug Profile Blood (6 LAB 05/25/24 Logged Drugs) 11:[address] 05/25/24 Logged 11:53 Complete Blood Count LAB 05/25/24 Logged 11:54 Comprehensive LAB 05/25/24 Logged Metabolic Panel 11:54 Magnesium LAB 05/25/24 Logged 11:54 Chest Xray 1 View XY 05/25/24 Resulted 13:55 Abg W/ Co-Ox RT 05/25/24 Logged 13:55 Thyroid Stimulating LAB 05/25/24 Logged Hormone 11:54 Date of Service: May 25, 2024 Billing Provider: REINA WHYTE MD Common Visit Codes: [id number] INP/OBS CARE(HIGH) QUAN RICHMOND RESIDENT May 25, 2024 12:42 REINA WHYTE MD May 29, 2024 20:49
[2024-05-25 13:34] LABS: Basophils # (auto) 0 10 ^3/uL (0-0.2); Eosinophils # (auto) 0.1 10 ^3/uL (0-0.8); Neutrophils # (auto) 4.3 10 ^3/uL (1.6-8.6); Nucleated Red Blood Cells % 0.1 %
[2024-05-25 13:36] LABS: Basophils % (auto) 0.3 % (0.0-2.0); Eosinophils % (auto) 1.4 % (0.0-7.0); Hematocrit 26.3 % (41.0-53.0); Hemoglobin 8.4 g/dL (13.5-17.5); Lymphocytes # (auto) 0.2 10 ^3/uL (0.4-5.4); Lymphocytes % (auto) 4.9 % (10.0-50.0); Mean Corpuscular Hemoglobin 24.2 pg (28.0-32.0); Mean Corpuscular Volume 75.7 fL (80.0-100.0); Monocytes # (auto) 0.4 10 ^3/uL (0-1.3); Monocytes % (auto) 8.1 % (0.0-12.0); Neutrophils % (auto) 85.3 % (37.0-80.0); Platelet Count (auto) 220 10^3/uL (140-450); Red Blood Cells 3.48 10^6/uL (4.5-5.90); Red Cell Distribution Width 27.8 % (11.8-14.3)
[2024-05-25 14:06] LABS: Base Excess -3.1 mmol/L (-2.0-3.0)
[2024-05-25 14:08] LABS: Alanine Aminotransferase 16 U/L (7-40); Alkaline Phosphatase 62 U/L (46-116); Anion Gap 7 (5-15); Aspartate Aminotransferase 16 U/L (13-40); BUN/Creatinine Ratio 10.3 (10.0-20.0); Carbon Dioxide 26 mmol/L (20-31); Chloride 105 mmol/L (98-107); Glucose 100 mg/dL (74-106); Magnesium 1.8 mg/dL (1.6-2.6); Sodium 138 mmol/L (136-145)
[2024-05-25 14:21] LABS: Albumin 2.8 g/dL (3.2-4.8); Bilirubin, Total 0.2 mg/dL (0.2-1.0); Blood Urea Nitrogen 72 mg/dL (9-23); Calcium 8.6 mg/dL (8.7-10.4); Total Protein 5.4 g/dL (5.7-8.2)
[2024-05-25 14:22] LABS: Potassium 5.6 mmol/L (3.5-5.1)
[2024-05-25 16:10] LABS: Body Fluid Polymorphonuclear 5 % (0-25); Body Fluid Red Blood Cells 0 CUMM (0-2000); Body Fluid White Blood Cells 538 CUMM (0-200)
[2024-05-25 17:49] LABS: Rapid Influenza A Negative (Negative)
[2024-05-25 17:51] LABS: COVID19 ANTIGEN SOFIA FIA NEGATIVE (NEGATIVE); Rapid Influenza B Positive (Negative)
[2024-05-25] MEDS ORDERED: OSELTAMIVIR 75 MG CAP PO ONE (18:30)
[2024-05-25 18:32] LABS: Urine Bacteria FEW /hpf (None Seen); Urine Blood TRACE /uL (Negative); Urine Clarity Clear (Clear); Urine Color Yellow (Yellow); Urine Hyaline Cast FEW /lpf (0 - 2); Urine Protein, UAD 2+ (Negative); Urine Squamous Epithelial Cell None Seen /hpf (<5); Urine Urobilinogen Normal (Negative); Urine WBC 4 /hpf (0 - 3)
[2024-05-25 18:43] LABS: Amphetamine Screen, Urine Neg (NEGATIVE); Barbiturate Scree,Urine Neg (NEGATIVE); Benzodiazephine Screen, Urine Neg (NEGATIVE); Cannabinoid Screen, Urine Neg (NEGATIVE); Cocaine Screen, Urine Neg (NEGATIVE); Opiate Scree,Urine Neg (NEGATIVE); Phencyclidine Screen, Urine Neg (NEGATIVE)
[2024-05-25] MEDS: LACTULOSE 20Gm/30ML SOLN PO SCH (19:09)
[2024-05-25] MEDS: OSELTAMIVIR 30 MG CAP PO SCH (19:44)
[2024-05-25] MEDS: EPOETIN ALFA-EPBX 10,000 UNIT/1ML VIAL SC ONE (21:33)
[2024-05-26] VITALS (10 sets, daily range): BP systolic 93–145; BP diastolic 42–84; PULSE 75–86; RESP 18–22; TEMP 97.9–99; O2SAT 93–97
[2024-05-26 00:11] LABS: Base Excess -2.7 mmol/L (-2.0-3.0)
--- NOTE | 2024-05-26 04:03 | DVH ---
EXAM: CT HEAD WITHOUT CONTRAST INDICATION: ALOC TECHNIQUE: CT of the head without intravenous contrast. Radiation Dose Information: CT Dose: CTDI volume is 62 mGy. Dose-length product is 1207.16 mGy*cm The dose indicators for CT are the volume Computed Tomography (CT) Dose Index (CTDIvol) and the Dose Length Product (DLP), and are measured in units of mGy and mGy-cm, respectively. These indicators are not patient dose, but values generated from the CT scanner acquisition factors. The report includes radiation exposure data for exposures received during this examination. COMPARISON: None FINDINGS: There is no evidence of acute intracranial hemorrhage, extra-axial collection, mass effect, midline s hift, herniation or hydrocephalus. The ventricles, sulci and cisterns are age appropriate. The davis-white differentiation is intact. The visualized paranasal sinuses and mastoid air cells are clear. The surrounding soft tissues and osseous structures are unremarkable. IMPRESSION: 1. No acute intracranial abnormality.
--- NOTE | 2024-05-26 05:42 | DVH ---
CHEST RADIOGRAPH Indication: SOB Technique: Single frontal view of the chest was obtained Comparison: XY CHEST XRAY 1 VIEW on DOS: 05/25/24, XY CHEST PORTABLE on DOS: 05/24/24 IMPRESSION: The heart is prominent in size. Patchy airspace opacities in the right lower lung have increased with persistent opacity in the left perihilar lung. Likely small right pleural effusion. No pneumothorax. Right dialysis catheter tip in the superior vena cava.
[2024-05-26 05:47] LABS: Basophils # (auto) 0 10 ^3/uL (0-0.2); Eosinophils # (auto) 0.2 10 ^3/uL (0-0.8); Lymphocytes # (auto) 0.3 10 ^3/uL (0.4-5.4); Monocytes # (auto) 0.4 10 ^3/uL (0-1.3); Platelet Count (auto) 175 10^3/uL (140-450); White Blood Cell 3.9 10^3/uL (4.4-10.8)
[2024-05-26 05:50] LABS: Basophils % (auto) 0.5 % (0.0-2.0); Eosinophils % (auto) 4.5 % (0.0-7.0); Hematocrit 21.9 % (41.0-53.0); Lymphocytes % (auto) 6.5 % (10.0-50.0); Mean Corpuscular Hemoglobin 24.7 pg (28.0-32.0); Mean Corpuscular Hgb Conc. 32.2 g/dL (32.0-36.0); Mean Corpuscular Volume 76.6 fL (80.0-100.0); Monocytes % (auto) 10.7 % (0.0-12.0); Neutrophils % (auto) 77.8 % (37.0-80.0); Nucleated Red Blood Cells % 0.2 %; Red Blood Cells 2.86 10^6/uL (4.5-5.90)
[2024-05-26 06:12] LABS: Alanine Aminotransferase 11 U/L (7-40); Alkaline Phosphatase 53 U/L (46-116); Anion Gap 8 (5-15); Aspartate Aminotransferase 14 U/L (13-40); BUN/Creatinine Ratio 9.5 (10.0-20.0); Carbon Dioxide 25 mmol/L (20-31); Chloride 105 mmol/L (98-107); Phosphorus 4.1 mg/dL (2.4-5.1); Potassium 4.8 mmol/L (3.5-5.1); Sodium 138 mmol/L (136-145)
[2024-05-26 06:13] LABS: Albumin 2.7 g/dL (3.2-4.8); Bilirubin, Total 0.2 mg/dL (0.2-1.0); Blood Urea Nitrogen 50 mg/dL (9-23); Calcium 7.9 mg/dL (8.7-10.4); Glucose 181 mg/dL (74-106); Magnesium 1.6 mg/dL (1.6-2.6); Total Protein 5.1 g/dL (5.7-8.2)
[2024-05-26] MEDS ORDERED: DEXTROSE (50%) 50ML SYRG IV PRN (07:00)
[2024-05-26] MEDS: ACCU-CHEK COMFORT CURVE STRIP VI SCH (08:00)
[2024-05-26 08:33] LABS: Anisocytosis Slight; Hypochromia Moderate
[2024-05-26 08:34] LABS: Ovalocytes FEW; Tear Drop Cells FEW
[2024-05-26 08:35] LABS: Platelet Estimate Adequate
[2024-05-26] MEDS: InsuLIN REG 1unit/0.01ml Soln (100units/ml) SC SCH (08:40)
[2024-05-26] MEDS: cefTRIAXone 2GM/50ML D5W 50 ML IV SCH (09:37)
[2024-05-26] MEDS: ENOXAPARIN SOD 30 MG/0.3 ML SYRINGE SC SCH (09:39)
[2024-05-26 14:06] LABS: Protein, Body Fluid 2.3 g/dL (.)
--- NOTE | 2024-05-26 15:43 | DVHPN2 ---
Subjective alert and oriented now, receiveg HD Changes from previous H/P or p: No Changes Eyes: No Pain, No Vision change, No Conjunctivae inflammation, No Eyelid inflammation, No Other, No Redness ENT: No Ear pain, No Ear discharge, No Nose pain, No Nose discharge, No Nose congestion, No Mouth pain, No Mouth swelling, No Throat pain, No Throat swelling, No Other Cardiovascular: No Chest Pain, No Palpitations, No Orthopnea, No Paroxysmal Noc. Dyspnea; Edema; No Lt Headedness, No Other Respiratory: Cough; No Dry; Shortness of breath, SOB with excertion; No Wheezing, No Hemoptysis, No Pleuritic Pain, No Sputum, No Other Gastrointestinal: No Nausea, No Vomiting; Abdominal Pain; No Diarrhea, No Constipation, No Melena, No Hematochezia, No Other Genitourinary: No Dysuria, No Frequency, No Incontinence, No Hematuria, No Retention, No Other Musculoskeletal: No other, No neck pain, No shoulder pain, No arm pain, No back pain, No hand pain, No leg pain, No foot pain Skin: No Rash, No Lesions, No Jaundice, No Bruising, No Other Objective Vitals Vital Signs Date Time Temp Pulse Resp B/P (MAP) Pulse Ox O2 Delivery O2 Flow Rate FiO2 05/26/24 13:15 97.9 80 21 123/84 97.9 05/26/24 13:00 99 05/26/24 07:30 Nasal Cannula* 2 28 Intake/Output Intake and Output 05/26/24 07:00 Intake Total 950 ml Balance 950 ml Intake IV Total 950 ml Medications Current Medications Medications Dose Ordered Sig/Debra Route Start Time Stop Time Status Last Admin Dose Admin Acetaminophen/ Hydrocodone Bitart 1 tab Q4HP PRN PO 05/24/24 23:15 Midodrine 10 mg TID@0600,1200,1800 PO 05/25/24 01:15 05/26/24 12:28 10 MG Ceftriaxone Sodium/Dextrose 50 ml @ 50 mls/hr DAILY IV 05/26/24 10:00 05/26/24 09:37 50 MLS/HR Azithromycin 250 ml @ 125 mls/hr DAILY IV 05/25/24 10:00 05/26/24 09:45 125 MLS/HR Furosemide 40 mg DAILY IV 05/25/24 02:30 05/26/24 09:38 40 MG Spironolactone 25 mg DAILY PO 05/25/24 02:40 05/26/24 09:37 25 MG Norepinephrine Bitartrate 250 ml @ 3.75 mls/hr Q24H IV 05/25/24 03:15 05/25/24 03:37 11.25 MLS/HR Pantoprazole Sodium 40 mg BID IV 05/25/24 10:00 05/26/24 09:38 40 MG Dextrose 1,000 ml @ 50 mls/hr Q20H IV 05/25/24 11:15 05/25/24 11:30 50 MLS/HR Enoxaparin Sodium 30 mg DAILY SC 05/26/24 10:00 05/26/24 09:39 30 MG Lactulose 30 ml Q6HR PO 05/25/24 18:15 05/26/24 12:28 30 ML Oseltamivir Phosphate 30 mg DAILY PO 05/25/24 19:30 05/30/24 19:29 05/26/24 09:43 30 MG Diagnostic Test (Pha) 1 strip IQ4HR 05/26/24 08:00 05/26/24 12:30 1 STRIP Insulin Human Regular IQ4HR SC 05/26/24 08:00 05/26/24 08:40 3 UNITS Dextrose 50 ml UD PRN IV 05/26/24 07:00 Laboratory Results Laboratory Tests 05/26/24 05:30 Chemistry Test 05/26/24 05:30 Albumin 2.7 g/dL (3.2-4.8) L Calcium Level 7.9 mg/dL (8.7-10.4) L Magnesium Level 1.6 mg/dL (1.6-2.6) Phosphorus Level 4.1 mg/dL (2.4-5.1) Total Protein 5.1 g/dL (5.7-8.2) L LFT Test 05/26/24 05:30 Alanine Aminotransferase (ALT) 11 U/L (7-40) Alkaline Phosphatase 53 U/L (46-116) Aspartate Amino Transferase (AST) 14 U/L (13-40) Total Bilirubin 0.2 mg/dL (0.2-1.0) Urinalysis Test 05/25/24 18:05 Urine Color Yellow (Yellow) Urine Clarity Clear (Clear) Urine pH 5.0 (5.0-9.0) Urine Specific [place] 1.020 (1.001-1.035) Urine Protein 2+ (Negative) H Urine Ketones Trace (Negative) Urine Blood Trace /uL (Negative) H Urine Nitrite Negative (Negative) Urine Bilirubin Negative (Negative) Urine Urobilinogen Normal mg/dL (Negative) Urine Leukocyte Esterase Trace /uL (Negative) Urine RBC 4 /hpf (0 - 3) Urine WBC 4 /hpf (0 - 3) Urine Squamous Epithelial Cells None seen /hpf (<5) Urine Bacteria Few /hpf (None Seen) H Urine Hyaline Casts Few /lpf (0 - 2) Urine Glucose Trace mg/dL (Normal) Blood Gas Results Test 05/26/24 00:06 Arterial Blood pH 7.261 (7.350-7.450) FiO2 % 82.0 Microbiology Microbiology Date/Time Source Procedure Growth Status 05/25/24 10:35 Ascities Fluid Gram Stain - Final Resulted 05/25/24 10:35 Ascities Fluid Body Fluid Culture - Preliminary Resulted 05/24/24 21:08 Blood Blood Culture - Preliminary NO GROWTH AFTER 24 HOURS OF INCUBATION. Resulted Assessment/Plan Assessment/Plan ESRD on HD MWF uremic encep 2/2 missed HD acute hypercarbic resp failure s/p bipap now on NC PNA GN GP flu A c/w abx, tamiflu HD per tiffanie amaral dc plan with chair time likely tomorrow Plan discussed with: Patient Date of Service: May 26, 2024 Billing Provider: REINA WHYTE MD Common Visit Codes: [id number] INP/OBS CARE(HIGH) REINA WHYTE MD May 26, 2024 15:43
--- NOTE | 2024-05-26 16:53 | DVHPN2 ---
Progress Note Date Seen: May 26, 2024 Medical Necessity Reason Pt with a Central, PICC or Fol: No Subjective Patient reports: Feels better Review of Systems: Deferred Objective vital signs Vital Sign Date Time Temp Pulse Resp B/P (MAP) Pulse Ox O2 Delivery O2 Flow Rate FiO2 05/26/24 13:15 97.9 80 21 123/84 97.9 05/26/24 13:00 99 05/26/24 07:30 Nasal Cannula* 2 28 Total Intake and Output 05/25/24 05/25/24 05/26/24 15:00 23:00 07:00 Intake Total 250 ml 400 ml 300 ml Balance 250 ml 400 ml 300 ml medications Current Medications Medications Dose Ordered Sig/Debra Route Start Time Stop Time Status Last Admin Dose Admin Acetaminophen/ Hydrocodone Bitart 1 tab Q4HP PRN PO 05/24/24 23:15 Midodrine 10 mg TID@0600,1200,1800 PO 05/25/24 01:15 05/26/24 12:28 10 MG Ceftriaxone Sodium/Dextrose 50 ml @ 50 mls/hr DAILY IV 05/26/24 10:00 05/26/24 09:37 50 MLS/HR Azithromycin 250 ml @ 125 mls/hr DAILY IV 05/25/24 10:00 05/26/24 09:45 125 MLS/HR Furosemide 40 mg DAILY IV 05/25/24 02:30 05/26/24 09:38 40 MG Spironolactone 25 mg DAILY PO 05/25/24 02:40 05/26/24 09:37 25 MG Norepinephrine Bitartrate 250 ml @ 3.75 mls/hr Q24H IV 05/25/24 03:15 05/25/24 03:37 11.25 MLS/HR Pantoprazole Sodium 40 mg BID IV 05/25/24 10:00 05/26/24 09:38 40 MG Dextrose 1,000 ml @ 50 mls/hr Q20H IV 05/25/24 11:15 05/25/24 11:30 50 MLS/HR Enoxaparin Sodium 30 mg DAILY SC 05/26/24 10:00 05/26/24 09:39 30 MG Lactulose 30 ml Q6HR PO 05/25/24 18:15 05/26/24 12:28 30 ML Oseltamivir Phosphate 30 mg DAILY PO 05/25/24 19:30 05/30/24 19:29 05/26/24 09:43 30 MG Diagnostic Test (Pha) 1 strip IQ4HR 05/26/24 08:00 05/26/24 16:11 1 STRIP Insulin Human Regular IQ4HR SC 05/26/24 08:00 05/26/24 16:13 3 UNITS Dextrose 50 ml UD PRN IV 05/26/24 07:00 Examination: GENERAL:Abnormal, LUNGS:Abnormal, ABDOMEN:Abnormal, SKIN:Abnormal laboratory and microbiology Laboratory Tests 05/26/24 05:30 Test 05/26/24 05:30 Range/Units Serum Glucose 181 H 74-106 mg/dL Microbiology Date/Time Source Procedure Growth Status 05/25/24 10:35 Ascities Fluid Gram Stain - Final Resulted 05/25/24 10:35 Ascities Fluid Body Fluid Culture - Preliminary Resulted 05/24/24 21:08 Blood Blood Culture - Preliminary NO GROWTH AFTER 24 HOURS OF INCUBATION. Resulted Problem List/Assessment/Plan Problem List/Assessment/Plan EVE on Ckd currently on dialysis b/c not recovered from HRS in 04/2024 noncompliance with dialysis hyperkalemia CHF decompensated cirrhosis jaundice anemia due to iron deficiency fluid overload ascites hep C PRBC today lactulose HD today albumin for support epogen, IV iron x 5 days fluid restrict, low salt renal diet phos binder Plan discussed with: Patient KIERA MCGREGOR MD May 26, 2024 16:53
--- NOTE | 2024-05-26 20:45 | DVHPN2 ---
Progress Note - Dictate Date Seen: May 26, 2024 Medical Necessity Reason Pt with a Central, PICC or Fol: No Subjective Patient is seen at bedside in ICU 10 He is awake alert undergoing hemodialysis Patient has been dialyzed almost every day His hemoglobin dropped down to seven today He received 1 unit PRBC Patient denies any nausea vomiting hematemesis bright red blood per rectum or melena S/P paracentesis yesterday with removal of 6 L of fluid Patient tested positive for influenza B vital signs Vital Sign Date Time Temp Pulse Resp B/P (MAP) Pulse Ox O2 Delivery O2 Flow Rate FiO2 05/26/24 20:00 88 05/26/24 18:30 15 113/44 (67) 91 05/26/24 13:15 97.9 97.9 05/26/24 07:30 Nasal Cannula* 2 28 Total Intake and Output 05/25/24 05/25/24 05/26/24 15:00 23:00 07:00 Intake Total 250 ml 400 ml 300 ml Balance 250 ml 400 ml 300 ml medications Current Medications Medications Dose Ordered Sig/Debra Route Start Time Stop Time Status Last Admin Dose Admin Acetaminophen/ Hydrocodone Bitart 1 tab Q4HP PRN PO 05/24/24 23:15 Midodrine 10 mg TID@0600,1200,1800 PO 05/25/24 01:15 05/26/24 17:52 10 MG Ceftriaxone Sodium/Dextrose 50 ml @ 50 mls/hr DAILY IV 05/26/24 10:00 05/26/24 09:37 50 MLS/HR Azithromycin 250 ml @ 125 mls/hr DAILY IV 05/25/24 10:00 05/26/24 09:45 125 MLS/HR Furosemide 40 mg DAILY IV 05/25/24 02:30 05/26/24 09:38 40 MG Spironolactone 25 mg DAILY PO 05/25/24 02:40 05/26/24 09:37 25 MG Norepinephrine Bitartrate 250 ml @ 3.75 mls/hr Q24H IV 05/25/24 03:15 05/25/24 03:37 11.25 MLS/HR Pantoprazole Sodium 40 mg BID IV 05/25/24 10:00 05/26/24 09:38 40 MG Dextrose 1,000 ml @ 50 mls/hr Q20H IV 05/25/24 11:15 05/25/24 11:30 50 MLS/HR Enoxaparin Sodium 30 mg DAILY SC 05/26/24 10:00 05/26/24 09:39 30 MG Lactulose 30 ml Q6HR PO 05/25/24 18:15 05/26/24 12:28 30 ML Oseltamivir Phosphate 30 mg DAILY PO 05/25/24 19:30 05/30/24 19:29 05/26/24 09:43 30 MG Diagnostic Test (Pha) 1 strip IQ4HR 05/26/24 08:00 05/26/24 20:26 1 STRIP Insulin Human Regular IQ4HR SC 05/26/24 08:00 05/26/24 16:13 3 UNITS Dextrose 50 ml UD PRN IV 05/26/24 07:00 Epoetin Deep-epbx 10,000 unit MWF SC 05/28/24 21:00 objective General Appearance: Alert, Oriented X3, no distress HEENT: Atraumatic, PERRLA, EOMI, Mucous membr. moist/pink Respiratory: Normal air movement Cardiovascular: Regular rate, Normal S1, No murmurs Abdominal: Normal bowel sounds, soft and nontender at this time Extremities: No clubbing, No cyanosis, Normal pulses, Other (Bilateral lower extremity edema) Skin: No rashes, No breakdown, No significant lesion Neuro: Normal gait, Strength at 5/5 X4 ext, Normal tone, laboratory and microbiology Laboratory Tests 05/26/24 05:30 Test 05/26/24 05:30 Range/Units Serum Glucose 181 H 74-106 mg/dL Abd USG FINDINGS/IMPRESSIONS: There is small to moderate volume ascites in all 4 abdominal quadrants. Bilateral pleural effusions are present. 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
[2024-05-27] VITALS (8 sets, daily range): BP systolic 137–162; BP diastolic 71–92; PULSE 80–86; RESP 17–20; TEMP 97.5–98.2; O2SAT 93–99
[2024-05-27 08:15] LABS: Chloride 103 mmol/L (98-107); Sodium 137 mmol/L (136-145)
[2024-05-27 08:16] LABS: Anion Gap 8 (5-15); Carbon Dioxide 26 mmol/L (20-31)
[2024-05-27 08:21] LABS: BUN/Creatinine Ratio 9.2 (10.0-20.0)
[2024-05-27 08:23] LABS: Blood Urea Nitrogen 44 mg/dL (9-23); Calcium 8.6 mg/dL (8.7-10.4); Glucose 143 mg/dL (74-106)
--- NOTE | 2024-05-27 10:19 | DVHPN2 ---
Progress Note - Dictate Date Seen: May 27, 2024 Medical Necessity Reason Pt with a Central, PICC or Fol: No Subjective Patient has been admitted to [facility] doing He is in isolation due to influenza B He offers no new complaints; he feels better after paracentesis and dialysis He was saturating well on 4 L nasal cannula No GI bleeding is reported Patient received 1 unit PRBC yesterday, no CBC today vital signs Vital Sign Date Time Temp Pulse Resp B/P (MAP) Pulse Ox O2 Delivery O2 Flow Rate FiO2 05/27/24 09:38 163/83 05/27/24 05:00 97.7 81 18 99 97.7 05/26/24 22:47 Nasal Cannula* 4 36 Total Intake and Output 05/26/24 05/26/24 05/27/24 15:00 23:00 07:00 Intake Total 600 ml 300 ml 200 ml Output Total 0 ml 175 ml Balance 600 ml 300 ml 25 ml medications Current Medications Medications Dose Ordered Sig/Debra Route Start Time Stop Time Status Last Admin Dose Admin Acetaminophen/ Hydrocodone Bitart 1 tab Q4HP PRN PO 05/24/24 23:15 Midodrine 10 mg TID@0600,1200,1800 PO 05/25/24 01:15 05/26/24 17:52 10 MG Ceftriaxone Sodium/Dextrose 50 ml @ 50 mls/hr DAILY IV 05/26/24 10:00 05/27/24 10:14 50 MLS/HR Azithromycin 250 ml @ 125 mls/hr DAILY IV 05/25/24 10:00 05/27/24 09:39 125 MLS/HR Furosemide 40 mg DAILY IV 05/25/24 02:30 05/27/24 09:38 40 MG Spironolactone 25 mg DAILY PO 05/25/24 02:40 05/27/24 09:39 25 MG Norepinephrine Bitartrate 250 ml @ 3.75 mls/hr Q24H IV 05/25/24 03:15 05/25/24 03:37 11.25 MLS/HR Pantoprazole Sodium 40 mg BID IV 05/25/24 10:00 05/27/24 09:37 40 MG Dextrose 1,000 ml @ 50 mls/hr Q20H IV 05/25/24 11:15 05/25/24 11:30 50 MLS/HR Enoxaparin Sodium 30 mg DAILY SC 05/26/24 10:00 05/27/24 09:39 30 MG Lactulose 30 ml Q6HR PO 05/25/24 18:15 05/27/24 06:13 30 ML Oseltamivir Phosphate 30 mg DAILY PO 05/25/24 19:30 05/30/24 19:29 05/27/24 09:38 30 MG Diagnostic Test (Pha) 1 strip IQ4HR 05/26/24 08:00 05/27/24 08:02 1 STRIP Insulin Human Regular IQ4HR SC 05/26/24 08:00 05/26/24 16:13 3 UNITS Dextrose 50 ml UD PRN IV 05/26/24 07:00 Epoetin Deep-epbx 10,000 unit MWF SC 05/28/24 21:00 objective General Appearance: Alert, Oriented X3, no distress HEENT: Atraumatic, PERRLA, EOMI, Mucous membr. moist/pink Respiratory: Normal air movement Cardiovascular: Regular rate, Normal S1, No murmurs Abdominal: Normal bowel sounds, soft and nontender at this time Extremities: No clubbing, No cyanosis, Normal pulses, Other (Bilateral lower extremity edema) Skin: No rashes, No breakdown, No significant lesion Neuro: Normal gait, Strength at 5/5 X4 ext, Normal tone, laboratory and microbiology Laboratory Tests 05/27/24 07:10 05/26/24 05:30 Test 05/27/24 07:10 Range/Units Serum Glucose 143 H 74-106 mg/dL Problems(with codes): (1) Cirrhosis of liver (2) Chronic kidney disease with end stage renal failure on dialysis (3) Respiratory failure with hypoxia (4) Fluid overload Prognosis Assessment plan Doubt primary decompensation of his liver I 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
--- NOTE | 2024-05-27 10:56 | DVHPN2 ---
Progress Note Date Seen: May 27, 2024 Medical Necessity Reason Pt with a Central, PICC or Fol: No Objective vital signs Vital Sign Date Time Temp Pulse Resp B/P (MAP) Pulse Ox O2 Delivery O2 Flow Rate FiO2 05/27/24 09:38 163/83 05/27/24 09:00 97.6 82 18 97 97.6 05/26/24 22:47 Nasal Cannula* 4 36 Total Intake and Output 05/26/24 05/26/24 05/27/24 15:00 23:00 07:00 Intake Total 600 ml 300 ml 200 ml Output Total 0 ml 175 ml Balance 600 ml 300 ml 25 ml medications Current Medications Medications Dose Ordered Sig/Debra Route Start Time Stop Time Status Last Admin Dose Admin Acetaminophen/ Hydrocodone Bitart 1 tab Q4HP PRN PO 05/24/24 23:15 Midodrine 10 mg TID@0600,1200,1800 PO 05/25/24 01:15 05/26/24 17:52 10 MG Ceftriaxone Sodium/Dextrose 50 ml @ 50 mls/hr DAILY IV 05/26/24 10:00 05/27/24 10:14 50 MLS/HR Azithromycin 250 ml @ 125 mls/hr DAILY IV 05/25/24 10:00 05/27/24 09:39 125 MLS/HR Furosemide 40 mg DAILY IV 05/25/24 02:30 05/27/24 09:38 40 MG Spironolactone 25 mg DAILY PO 05/25/24 02:40 05/27/24 09:39 25 MG Norepinephrine Bitartrate 250 ml @ 3.75 mls/hr Q24H IV 05/25/24 03:15 05/25/24 03:37 11.25 MLS/HR Pantoprazole Sodium 40 mg BID IV 05/25/24 10:00 05/27/24 09:37 40 MG Dextrose 1,000 ml @ 50 mls/hr Q20H IV 05/25/24 11:15 05/25/24 11:30 50 MLS/HR Enoxaparin Sodium 30 mg DAILY SC 05/26/24 10:00 05/27/24 09:39 30 MG Lactulose 30 ml Q6HR PO 05/25/24 18:15 05/27/24 06:13 30 ML Oseltamivir Phosphate 30 mg DAILY PO 05/25/24 19:30 05/30/24 19:29 05/27/24 09:38 30 MG Diagnostic Test (Pha) 1 strip IQ4HR 05/26/24 08:00 05/27/24 08:02 1 STRIP Insulin Human Regular IQ4HR SC 05/26/24 08:00 05/26/24 16:13 3 UNITS Dextrose 50 ml UD PRN IV 05/26/24 07:00 Epoetin Deep-epbx 10,000 unit MWF SC 05/28/24 21:00 Examination: GENERAL:Abnormal, LUNGS:Abnormal, ABDOMEN:Abnormal, SKIN:Abnormal laboratory and microbiology Laboratory Tests 05/27/24 07:10 05/26/24 05:30 Test 05/27/24 07:10 Range/Units Serum Glucose 143 H 74-106 mg/dL Microbiology Date/Time Source Procedure Growth Status 05/25/24 10:35 Ascities Fluid Gram Stain - Final Resulted 05/25/24 10:35 Ascities Fluid Body Fluid Culture - Preliminary Resulted 05/24/24 21:08 Blood Blood Culture - Preliminary NO GROWTH AFTER 48 HOURS OF INCUBATION. Resulted Problem List/Assessment/Plan Problem List/Assessment/Plan EVE on Ckd currently on dialysis b/c not recovered from HRS in 04/2024 noncompliance with dialysis hyperkalemia CHF decompensated cirrhosis jaundice anemia fluid overload ascites hep C lactulose HD tuesday or tuesday, no heparin in HD due to low PLT albumin for support epogen 3x a week, IV iron x 5 days fluid restrict, low salt renal diet phos binder gastroenterology Plan discussed with: Patient My Orders My Orders Orders - KIERA MCGREGOR MD Procedure Category Date Status Time Epoetin Deep-Epbx PHA 05/28/24 In Process (Retacrit) 21:00 Complete Blood Count LAB 05/27/24 Logged 04:00 CC Plasma Assessment Blood Product Administration S: 1100 KIERA MCGREGOR MD May 27, 2024 10:56
[2024-05-27 15:27] LABS: Hematocrit 32.9 % (41.0-53.0); Hemoglobin 10.4 g/dL (13.5-17.5); Mean Corpuscular Hemoglobin 24.4 pg (28.0-32.0)
[2024-05-27 15:30] LABS: Mean Corpuscular Hgb Conc. 31.7 g/dL (32.0-36.0); Mean Corpuscular Volume 76.9 fL (80.0-100.0); Platelet Count (auto) 230 10^3/uL (140-450); Red Blood Cells 4.28 10^6/uL (4.5-5.90); Red Cell Distribution Width 27.3 % (11.8-14.3); White Blood Cell 4.8 10^3/uL (4.4-10.8)
[2024-05-27 15:36] LABS: Band Neutrophils % (manual) 0; Basophils % (manual) 0 (0.0-2.0); Blast Cells 0; Metamyelocytes % 0; Myelocytes % 0; Promyelocytes % 0; Reactive Lymphocytes 0
[2024-05-27 16:09] LABS: Anisocytosis Moderate; Eosinophils % (manual) 7 (0-7); Lymphocytes % (manual) 14 (10.0-50.0); Monocytes % (manual) 3 (0-12); Tear Drop Cells FEW
[2024-05-27 16:10] LABS: Hypochromia Slight; Platelet Estimate Adequate
--- NOTE | 2024-05-27 16:40 | DVHPNRES ---
Progress Note Date Seen: May 27, 2024 Resident Creating Document: QUAN RICHMOND RESIDENT Medical Necessity Reason Pt with a Central, PICC or Fol: No Subjective Review of Systems Patient is 58 years old male with past medical history of ESRD on hemodialysis Tuesday/Tuesday/Tuesday, noncompliant, hypertension, diabetes mellitus type 2, liver cirrhosis, likely due to hepatitis-C infection, heart failure with preserved ejection fraction, suspected COPD came in with a worsening short of breath and abdominal distention. Patient was recently discharged from [facility] after having paracentesis due to abdominal distention and shortness of breaths. Patient came back with a complaint of shortness of breath and abdominal distention. Initial lab workup revealed moderate to severe anemia with a hemoglobin 8.0, potassium 5.5, serum creatinine 6.67, blood sugar 52, HGB A1c 7.1, albumin 3.1, iron 11, TIBC 180, ferritin 16, ammonia 48. CXR-Pulmonary edema and/or multifocal infection. CT abdomen and Pelvis without contrast- Cirrhosis with sequelae of portal hypertension.Moderate diffuse anasarca and ascites. Diffuse colonic and small bowel wall thickening most likely due to portal enterocolopathy and less likely due to infectious / inflammatory process. Bilateral posterior lower lobe consolidation with air bronchograms concerning for pneumonia. There is small to moderate volume ascites in all 4 abdominal quadrants. Bilateral pleural effusions are present. Initial ABG on 05/25/24 at 353 revealed pH 7.181, partial pressure of carbon dioxide 65.1, partial pressure of oxygen 74.4, bicarbonate 23.8, ABG on 05/25/2024 at 7:41 a.m. revealed pH 7.25, versus pressure of carbon dioxide 54.6, partial pressure of oxygen 60.4, bicarbonate 23.4. Follow up ABG on 05/25/2024 at 1132 revealed pH 7.25, partial pressure of carbon dioxide 50.4, patient of oxygen 100.5, bicarbonate 22.1. PMH-ESRD on hemodialysis Tuesday/Tuesday/Tuesday, noncompliant, hypertension, diabetes mellitus type 2, liver cirrhosis, likely due to hepatitis-C infection, heart failure with preserved ejection fraction, suspected COPD Allergy- NKDA- Patient was seen today at the bedside. Patient's confusion details could not be obtained. Patient was seen today for clinical evaluation. Less than chart reviewed. Today hemoglobin 10.4. Patient was seen by hair boiler. Recommendation reviewed and appreciated. As per Nephrology hemodialysis on Tuesday or Tuesday. No heparin because of low platelet count. Patient will be discharged home once chair time is scheduled. Patient was also seen by side laster staple, recommendation reviewed and appreciated Objective vital signs Vital Sign Date Time Temp Pulse Resp B/P (MAP) Pulse Ox O2 Delivery O2 Flow Rate FiO2 05/27/24 13:00 97.5 80 18 158/91 (113) 99 97.5 05/27/24 07:30 Nasal Cannula* 3 32 Total Intake and Output 05/26/24 05/26/24 05/27/24 15:00 23:00 07:00 Intake Total 600 ml 300 ml 200 ml Output Total 0 ml 175 ml Balance 600 ml 300 ml 25 ml medications Current Medications Medications Dose Ordered Sig/Debra Route Start Time Stop Time Status Last Admin Dose Admin Acetaminophen/ Hydrocodone Bitart 1 tab Q4HP PRN PO 05/24/24 23:15 Midodrine 10 mg TID@0600,1200,1800 PO 05/25/24 01:15 05/26/24 17:52 10 MG Ceftriaxone Sodium/Dextrose 50 ml @ 50 mls/hr DAILY IV 05/26/24 10:00 05/27/24 10:14 50 MLS/HR Azithromycin 250 ml @ 125 mls/hr DAILY IV 05/25/24 10:00 05/27/24 09:39 125 MLS/HR Furosemide 40 mg DAILY IV 05/25/24 02:30 05/27/24 09:38 40 MG Spironolactone 25 mg DAILY PO 05/25/24 02:40 05/27/24 09:39 25 MG Norepinephrine Bitartrate 250 ml @ 3.75 mls/hr Q24H IV 05/25/24 03:15 05/25/24 03:37 11.25 MLS/HR Pantoprazole Sodium 40 mg BID IV 05/25/24 10:00 05/27/24 09:37 40 MG Dextrose 1,000 ml @ 50 mls/hr Q20H IV 05/25/24 11:15 05/25/24 11:30 50 MLS/HR Enoxaparin Sodium 30 mg DAILY SC 05/26/24 10:00 05/27/24 09:39 30 MG Lactulose 30 ml Q6HR PO 05/25/24 18:15 05/27/24 11:53 30 ML Oseltamivir Phosphate 30 mg DAILY PO 05/25/24 19:30 05/30/24 19:29 05/27/24 09:38 30 MG Diagnostic Test (Pha) 1 strip IQ4HR 05/26/24 08:00 05/27/24 16:17 1 STRIP Insulin Human Regular IQ4HR SC 05/26/24 08:00 05/27/24 11:54 9 UNITS Dextrose 50 ml UD PRN IV 05/26/24 07:00 Epoetin Deep-epbx 10,000 unit MWF SC 05/28/24 21:00 Enteral Nutritional Formula 240 ml TIDWM PO 05/27/24 18:00 Enteral Nutritional Formula 27.5 gm BIDBM PO 05/28/24 10:00 Examination General examination- patient is awake, alert, conversant HEENT- PEERLA, no acute nasal discharge Cardiovascular- S1-S2 audible, rate and rhythm regular, no murmur Respiratory- bilateral reduced breath sound+, bilateral crackles+ Gastrointestinal-abdomen distended+, nontender, bowel sound+. Musculoskeletal-no acute joint swelling or tenderness or redness# Lower extremity- bilateral leg edema+ Neurological- cranial nerves intact, no acute dysarthria or dysphagia Psychiatry- denies depression or SI or HI Skin- no acute rash or purpura laboratory and microbiology Laboratory Tests 05/27/24 15:08 05/27/24 07:10 Test 05/27/24 07:10 Range/Units Serum Glucose 143 H 74-106 mg/dL Microbiology Date/Time Source Procedure Growth Status 05/26/24 23:55 Nose MRSA Screen - Final Complete 05/25/24 10:35 Ascities Fluid Gram Stain - Final Resulted 05/25/24 10:35 Ascities Fluid Body Fluid Culture - Preliminary Resulted 05/24/24 21:08 Blood Blood Culture - Preliminary NO GROWTH AFTER 48 HOURS OF INCUBATION. Resulted Problem List/Assessment/Plan Problem List/Assessment/Plan Neurology : Metabolic likely due to ESRD/pneumonia Recurrent hypoglycemic episode, emergently treated, resolved Cardiovascular : Hypertension Heart failure with preserved ejection fraction Respiratory : Acute hypoxic respiratory failure Acute hypoxic respiratory failure likely due to volume overload in the setting of missed HD and decompensated liver cirrhosis Bilateral pleural effusion likely due to ESRD/heart failure Acute pneumonia Gram-positive versus Gram-negative Influenza type B Gastrointestinal : Cirrhosis of liver, out decompensated cirrhosis of liver-as per side laster staple Suspected spontaneous bacterial peritonitis Rebound ascites Genitourinary : Infectious Disease : Pneumonia bacterial versus viral Endocrine : Diabetes mellitus type 2 Hematology : Moderately severe anemia likely due to ESRD Skin: Fragile skin with some ecchymosis Others: Respiratory acidosis Hypoalbuminemia Hyperkalemia likely due to ESRD Hyperammonemia likely due to cirrhosis of liver Nutrition : Renal diet End-stage renal disease on hemodialysis (Tuesday, Tuesday, Tuesday) -last hemodialysis was seven days ago on Tuesday, patient missed couple of hemodialysis sessions Hyperkalemia in the setting of ESRD -patient recently started on HD ([id number]) missed sessions (Last one 7 days ago) -Initial chest x ray showing pulm vasc congestion with likely interstitial infiltrates on right middle lobe -echocardiogram performed on May 15, 2024 showed an LVEF of 55% with a grade 1 diastolic dysfunction -BNP was 2239 most likely in the setting of volume overload Maintain strict intake output chart. Renal diet, Continue ceftriaxone 2 g IV daily Continue azithromycin 500 mg IV daily Continue Lasix 40 mg IV daily Continue lactulose 30 mL q.6h Continue spironolactone 25 mg p.o. daily Continue Tamiflu 75 mg p.o. b.i.d. Goals of care/advance care planning; FULL CODE; discussed with the patient >15 minutes Isolation precaution PUD prophylaxis: Pantoprazole DVT prophylaxis: Lovenox Plan discussed with Dr. Whyte, nursing staff, patient Total time spent on patient evaluation, chart review, assessment and plan, discussion discussion >30 minutes Plan discussed with: Patient Plan discussed with: Patient, Other (RN) My Orders My Orders Orders - QUAN RICHMOND RESIDENT Procedure Category Date Status Time Hepatitis B Surface LAB 05/26/24 In Process Antigen 23:36 Hepatitis C Antibody LAB 05/26/24 In Process 23:36 * Dietary Consult CONS 05/26/24 Transmitted 23:49 * Wound Consult CONS 05/26/24 Transmitted * National Account Director CONS 05/27/24 Transmitted Consult Dietary Evaluation Review Comments: 1. Continue current diet 2. Consider David Bid (180kcal, 5g pro) for wound healing if medically appropriate 3. Consider Nepro TID (1260kcal, 57g pro) for increasing po intake Expected Outcomes/Goals: 1. pt will consume >75% of esimated needs within 3-5 days CC Plasma Assessment Blood Product Administration S: 1100 Date of Service: May 27, 2024 Billing Provider: REINA WHYTE MD Common Visit Codes: [id number] INP/OBS CARE(HIGH) QUAN RICHMOND RESIDENT May 27, 2024 16:40 REINA WHYTE MD May 29, 2024 20:50
[2024-05-27] MEDS: Nepro With Carbsteady Vanilla 8oz Carton PO SCH (18:00)
[2024-05-28] VITALS (8 sets, daily range): BP systolic 136–156; BP diastolic 80–87; PULSE 81–90; RESP 17–19; TEMP 36.6; O2SAT 95–97
[2024-05-28] MEDS: Juven Orange Powder PACKET 27.5gm PO SCH (08:27)
[2024-05-28 09:18] LABS: Hepatitis B Surface Antigen Negative (Negative)
[2024-05-28 09:18] LABS: Hepatitis B Surface Antigen Negative (Negative)
[2024-05-28 09:41] LABS: Hepatitis A Ab IgM Negative; Hepatitis B Core IgM Negative (Negative)
[2024-05-28 09:44] LABS: Hepatitis C Antibody Reactive (Negative)
[2024-05-28 09:45] LABS: Hepatitis C Antibody Reactive (Negative)
[2024-05-28 10:59] LABS: BUN/Creatinine Ratio 7.8 (10.0-20.0)
[2024-05-28 11:00] LABS: Blood Urea Nitrogen 43 mg/dL (9-23); Calcium 8.6 mg/dL (8.7-10.4); Carbon Dioxide 26 mmol/L (20-31); Glucose 168 mg/dL (74-106)
[2024-05-28 11:03] LABS: Anion Gap 7 (5-15); Chloride 103 mmol/L (98-107); Potassium 5.2 mmol/L (3.5-5.1); Sodium 136 mmol/L (136-145)
[2024-05-28] MEDS: HYDROcodone-ACET 5/325MG TAB PO PRN (11:46)
[2024-05-28] MEDS: NICOTINE 21MG/24 HR TOPICAL PATCH TD ONE (11:46)
[2024-05-28] MEDS ORDERED: TAMIFLU PO (12:00)
[2024-05-28] MEDS ORDERED: AZITTAB PO (12:00)
[2024-05-28 12:16] LABS: Basophils # (auto) 0 10 ^3/uL (0-0.2); Neutrophils # (auto) 3.8 10 ^3/uL (1.6-8.6)
[2024-05-28 12:18] LABS: Basophils % (auto) 0.5 % (0.0-2.0); Eosinophils # (auto) 0.3 10 ^3/uL (0-0.8); Hematocrit 29.1 % (41.0-53.0); Hemoglobin 9.2 g/dL (13.5-17.5); Lymphocytes # (auto) 0.3 10 ^3/uL (0.4-5.4); Lymphocytes % (auto) 6.7 % (10.0-50.0); Mean Corpuscular Hemoglobin 24.7 pg (28.0-32.0); Mean Corpuscular Hgb Conc. 31.7 g/dL (32.0-36.0); Mean Corpuscular Volume 77.8 fL (80.0-100.0); Monocytes # (auto) 0.6 10 ^3/uL (0-1.3); Monocytes % (auto) 11.7 % (0.0-12.0); Neutrophils % (auto) 76.1 % (37.0-80.0); Nucleated Red Blood Cells % 0.2 %; Platelet Count (auto) 241 10^3/uL (140-450); Red Blood Cells 3.74 10^6/uL (4.5-5.90)
--- NOTE | 2024-05-28 14:38 | DVHDSRES ---
Discharge Summary Date of Admission Resident Creating Document: QUAN RICHMOND RESIDENT May 24, 2024 at 23:01 Date of Discharge: May 28, 2024 Admitting Diagnosis Acute hypoxic respiratory failure Labs/Diagnostic Data: Laboratory Results Test 05/28/24 10:00 05/27/24 15:08 05/27/24 12:43 05/27/24 07:10 White Blood Count 5.0 10^3/uL (4.4-10.8) Red Blood Count 3.74 10^6/uL (4.5-5.90) Hemoglobin 9.2 g/dL (13.5-17.5) Hematocrit 29.1 % (41.0-53.0) Mean Corpuscular Volume 77.8 fL (80.0-100.0) Mean Corpuscular Hemoglobin 24.7 pg (28.0-32.0) Mean Corpuscular Hemoglobin Concent 31.7 g/dL (32.0-36.0) Red Cell Distribution Width 27.0 % (11.8-14.3) Platelet Count 241 10^3/uL (140-450) Mean Platelet Volume 7.5 fL (6.9-10.8) Neutrophils (%) (Auto) 76.1 % (37.0-80.0) Lymphocytes (%) (Auto) 6.7 % (10.0-50.0) Monocytes (%) (Auto) 11.7 % (0.0-12.0) Eosinophils (%) (Auto) 5.0 % (0.0-7.0) Basophils (%) (Auto) 0.5 % (0.0-2.0) Neutrophils # (Auto) 3.8 10 ^3/uL (1.6-8.6) Lymphocytes # (Auto) 0.3 10 ^3/uL (0.4-5.4) Monocytes # (Auto) 0.6 10 ^3/uL (0-1.3) Eosinophils # (Auto) 0.3 10 ^3/uL (0-0.8) Basophils # (Auto) 0 10 ^3/uL (0-0.2) Nucleated Red Blood Cells 0.2 % Sodium Level 136 mmol/L (136-145) Potassium Level 5.2 mmol/L (3.5-5.1) Chloride Level 103 mmol/L (98-107) Carbon Dioxide Level 26 mmol/L (20-31) Anion Gap 7 (5-15) Blood Urea Nitrogen 43 mg/dL (9-23) Creatinine 5.51 mg/dL (0.700-1.30) Glomerular Filtration Rate Calc 11 mL/min (>90) BUN/Creatinine Ratio 7.8 (10.0-20.0) Serum Glucose 168 mg/dL (74-106) Calcium Level 8.6 mg/dL (8.7-10.4) Differential Total Cells Counted 100.0 (100) Neutrophils % (Manual) 76 (37.0-80.0) Band Neutrophils % (Manual) 0 Lymphocytes % (Manual) 14 (10.0-50.0) Monocytes % (Manual) 3 (0-12) Eosinophils % (Manual) 7 (0-7) Basophils % (Manual) 0 (0.0-2.0) Metamyelocytes % (manual) 0 Myelocytes % (Manual) 0 Promyelocytes % (Manual) 0 Blast Cells % (Manual) 0 Reactive Lymphocytes 0 Platelet Estimate Adequate Hypochromasia (manual) Slight Anisocytosis (manual) Moderate Microcytosis Slight Tear Drop Cells Few Schistocytes Few Stool Occult Blood Negative (Negative) Stool Occult Blood Sample #2 (Negative) Stool Occult Blood Sample #3 (Negative) Hepatitis B Surface Antigen Negative (Negative) Hepatitis C Antibody Reactive (Negative) Test 05/26/24 05:30 05/26/24 00:06 05/25/24 18:05 05/25/24 16:14 Ovalocytes Few Phosphorus Level 4.1 mg/dL (2.4-5.1) Magnesium Level 1.6 mg/dL (1.6-2.6) Total Bilirubin 0.2 mg/dL (0.2-1.0) Aspartate Amino Transferase (AST) 14 U/L (13-40) Alanine Aminotransferase (ALT) 11 U/L (7-40) Alkaline Phosphatase 53 U/L (46-116) Ammonia 38 umol/L (11-32) Total Protein 5.1 g/dL (5.7-8.2) Albumin 2.7 g/dL (3.2-4.8) Blood Gas Specimen Type Arterial Blood Gas Sample Site Left radial Blood Gas Patient Temperature 37.0 Arterial Blood Date Drawn Arterial Blood pH 7.261 (7.350-7.450) Arterial Blood Partial Pressure CO2 55.5 mmHg (35.0-48.0) Arterial Blood Partial Pressure O2 140.8 mmHg (83.0-108.0) Arterial Blood HCO3 24.4 mmol/L (21.0-28.0) Arterial Blood Oxygen Saturation 98.4 % (94.0-98.0) Arterial Blood Base Excess -2.7 mmol/L (-2.0-3.0) Arterial Blood Oxyhemoglobin 96.1 % (94.0-98.0) Arterial Blood Carboxyhemoglobin 1.6 % (0.5-1.5) Arterial Blood Methemoglobin 0.7 % (0.0-1.5) Parth Test Yes Blood Gas Total Hemoglobin 8.10 g/dL (13.5-17.5) Blood Gas Liter Flow 12.00 Blood Gas Modality Oxymizer FiO2 % 82.0 Urine Color Yellow (Yellow) Urine Clarity Clear (Clear) Urine pH 5.0 (5.0-9.0) Urine Specific Huguenot 1.020 (1.001-1.035) Urine Protein 2+ (Negative) Urine Ketones Trace (Negative) Urine Blood Trace /uL (Negative) Urine Nitrite Negative (Negative) Urine Bilirubin Negative (Negative) Urine Urobilinogen Normal mg/dL (Negative) Urine Leukocyte Esterase Trace /uL (Negative) Urine RBC 4 /hpf (0 - 3) Urine WBC 4 /hpf (0 - 3) Urine Squamous Epithelial Cells None seen /hpf (<5) Urine Bacteria Few /hpf (None Seen) Urine Hyaline Casts Few /lpf (0 - 2) Urine Glucose Trace mg/dL (Normal) Urine Opiates Screen Neg (NEGATIVE) Urine Fentanyl Screen Neg (NEGATIVE) Urine Barbiturates Screen Neg (NEGATIVE) Urine Phencyclidine Screen Neg (NEGATIVE) Urine Amphetamines Screen Neg (NEGATIVE) Urine Benzodiazepines Screen Neg (NEGATIVE) Urine Cocaine Screen Neg (NEGATIVE) Urine Cannabinoids Screen Neg (NEGATIVE) Influenza Type A Antigen Negative (Negative) Influenza Type B Antigen Positive (Negative) SARS-CoV-2 Antigen (Rapid) Negative (NEGATIVE) Test 05/25/24 14:01 05/25/24 13:15 05/25/24 10:35 05/25/24 07:05 Blood Gas Set Respiration Rate 12.0 Blood Gas EPAP 6 Blood Gas IPAP 18 Thyroid Stimulating Hormone (TSH) 0.72 uIU/mL (0.55-4.78) Body Fluid Source Peritoneal fluid Body Fluid pH 8.0 Body Fluid WBC (Manual) 538 CUMM (0-200) Body Fluid RBC (Manual) 0 CUMM (0-2000) Body Fluid Mononuclear Cells 95 % Body Fluid Polymorphonuclear Cells 5 % (0-25) Body Fluid Glucose 58 mg/dL (.) Body Fluid Total Protein 2.3 g/dL (.) Body Fluid Lactate Dehydrogenase 77 IU/L (.) Hepatitis A IgM Antibody Negative Hepatitis B Core IgM Antibody Negative (Negative) Test 05/25/24 03:53 05/24/24 23:20 05/24/24 22:00 05/24/24 21:08 Blood Gas Critical Value Read Back Yes Blood Gas Notified Whom Beni taylor md Blood Gas Notified Time [id number] Blood Gas Notified By Jason bronson rrt Hemoglobin A1c 7.1 % A1C (<5.7) Iron Level 11 ug/dL (65-175) Total Iron Binding Capacity 180 ug/dL (250-425) Percent Iron Saturation 6.1 % (20-55) Ferritin 36.3 ng/mL (22-322) Triglycerides Level 101 mg/dL (< 150) Cholesterol Level 72 mg/dL (< 200) LDL Cholesterol 42 mg/dL (< 100) HDL Cholesterol 21 mg/dL (40-59) Troponin I High Sensitivity 18 ng/L (</=54) Red Blood Cell Morphology Beatriz Cells Few Prothrombin Time 12.0 sec (9.3-11.8) Prothrombin Time INR 1.14 (0.9-1.15) Activated Partial Thromboplast Time 30.3 SEC (24.5-34.5) B-Type Natriuretic Peptide 2239.06 pg/mL (0-100) Test 05/24/24 21:00 Lactic Acid Level 1.6 mmol/L (0.4-2.0) Other Laboratory Tests 05/28/24 10:00 Brief Hx & Hospital Course: Patient is 58 years old male with past medical history of ESRD on hemodialysis Tuesday/Tuesday/Tuesday, noncompliant, hypertension, diabetes mellitus type 2, liver cirrhosis, likely due to hepatitis-C infection, heart failure with preserved ejection fraction, suspected COPD came in with a worsening short of breath and abdominal distention. Patient was recently discharged from [facility] after having paracentesis due to abdominal distention and shortness of breaths. Patient came back with a complaint of shortness of breath and abdominal distention. Initial lab workup revealed moderate to severe anemia with a hemoglobin 8.0, potassium 5.5, serum creatinine 6.67, blood sugar 52, HGB A1c 7.1, albumin 3.1, iron 11, TIBC 180, ferritin 16, ammonia 48. CXR-Pulmonary edema and/or multifocal infection. CT abdomen and Pelvis without contrast- Cirrhosis with sequelae of portal hypertension.Moderate diffuse anasarca and ascites. Diffuse colonic and small bowel wall thickening most likely due to portal enterocolopathy and less likely due to infectious / inflammatory process. Bilateral posterior lower lobe consolidation with air bronchograms concerning for pneumonia. There is small to moderate volume ascites in all 4 abdominal quadrants. Bilateral pleural effusions are present. Initial ABG on 05/25/24 at 353 revealed pH 7.181, partial pressure of carbon dioxide 65.1, partial pressure of oxygen 74.4, bicarbonate 23.8, ABG on 05/25/2024 at 7:41 a.m. revealed pH 7.25, versus pressure of carbon dioxide 54.6, partial pressure of oxygen 60.4, bicarbonate 23.4. Follow up ABG on 05/25/2024 at 1132 revealed pH 7.25, partial pressure of carbon dioxide 50.4, patient of oxygen 100.5, bicarbonate 22.1. During hospital course patient had hemodialysis and paracentesis. Patient's also had recurrent hypoglycemic episode and treated emergently. Patient's symptom improved with the hemodialysis. Patient was also treated with ceftriaxone and azithromycin for suspected acute pneumoniae and with Tamiflu for influenza type B. patient was discharged home today with chair time at 4:00 p.m. for hemodialysis. Patient's meds were sent to the pharmacy electronically. Patient was discharged with azithromycin 250 mg p.o. daily for 3 days and Tamiflu 75 mg p.o. b.i.d. for 3 days. Patient was advised to follow up with the primary care physician in 1 week and to follow up with the dealer accounts investigator in 2-4 weeks and also to be compliant with the GI time to avoid further complication. Patient verbalized understanding. Patient was hemodynamically stable on discharge. General examination- patient is awake, alert, conversant HEENT- PEERLA, no acute nasal discharge Cardiovascular- S1-S2 audible, rate and rhythm regular, no murmur Respiratory- bilateral reduced breath sound+, bilateral crackles+ Gastrointestinal-abdomen distended+, nontender, bowel sound+. Musculoskeletal-no acute joint swelling or tenderness or redness Lower extremity- bilateral leg edema+ Neurological- cranial nerves intact, no acute dysarthria or dysphagia Psychiatry- denies depression or SI or HI Skin- no acute rash or purpura laboratory and microbiology Operations or Procedures DIAGNOSTIC IMAGING Diagnostic Imaging Report : [id number] Signed PATIENT: RONEY ROWAN ACCT: [id number] UNIT: [id number] : 07/05/1960 LOC: ER ROOM / BED: / AGE / SEX: 63 / M ADM STATUS: REG ER SERVICE 55 ORDERING PHYSICIAN: JAMES KLINE MD PROCEDURE(s): CXRP - CHEST PORTABLE REASON: SOB ORDER NUMBER(s): [id number], ACCESSION NUMBER(s): [id number] CHEST RADIOGRAPH Indication: SOB Technique: Single frontal view of the chest was obtained COMPARISON: None FINDINGS: Lines and Tubes: Tunneled right central venous catheter in satisfactory position. Lungs: Multifocal airspace disease. Pleura: No effusion. No pneumothorax. Cardiomediastinal contours: Cardiomegaly Bones: Unremarkable IMPRESSION: Pulmonary edema and/or multifocal infection. ATED BY: ADRIANO MOSQUERA MD DICTATED DATE/TIME: 05/24/242017 SIGNED BY: ADRIANO MOSQUERA MD SIGNED DATE/TIME: 05/24/242017 CC: Diagnostic Imaging Report : [id number] Signed PATIENT: RONEY ROWAN ACCT: [id number] UNIT: [id number] : 1965 LOC: TELE ROOM / BED: [address] [place] [address] AGE / SEX: 58 / M ADM STATUS: ADM IN SERVICE 56 ORDERING PHYSICIAN: BECCA NIELSEN PROCEDURE(s): ABPL - CT AB PEL WO CON-NO ORAL OR IV REASON: acute abdominal pain r/o ascites ORDER NUMBER(s): [id number], ACCESSION NUMBER(s): [id number] Exam: CT CT AB PEL WO CON-NO ORAL OR IV History: acute abdominal pain r/o ascites Comparison Study: None available at time of dictation. Technique: Multidetector spiral CT of the abdomen was performed from lung bases to pubic symphysis. Imaging was performed without IV contrast. Axial, coronal and sagittal multiplanar reformats were obtained from the axial data set by the technologist. Radiation Dose : 1. Abdomen/Pelvis: CTDIvol 23 mGy, DLP 1478 mGy*cm. Findings: Evaluation of solid organs is limited due to lack of intravenous contrast use. Lung Bases: Bilateral posterior lower lobe consolidations with air bronchograms. Liver: The liver is normal in size. No focal lesions. Nodular contour Gallbladder and Biliary Tree: Unremarkable Spleen: Splenomegaly. Pancreas: The pancreas is grossly normal in appearance. Adrenal Glands: Unremarkable Kidneys: Kidneys are grossly normal without calculi or hydronephrosis. Bladder: Grossly unremarkable for degree of distention. Bowel: The stomach is grossly normal in appearance. Diffuse colonic wall thickening. Diffuse small bowel wall thickening. The appendix is not visualized; however, no secondary findings of acute appendicitis identified. Ascites: Moderate diffuse ascites. Lymphadenopathy: No mesenteric, retroperitoneal or periportal lymphadenopathy. Abdominal Wall and Mesentery: Moderate anasarca.. Vasculature: The visualized abdominal aorta is normal in size and caliber. Evaluation of abdominal and pelvic vessels is limited due to lack of intravenous contrast. Pelvic Organs: Unremarkable Musculoskeletal: No aggressive focal bony lesions, acute fractures or dislocation. IMPRESSION: Cirrhosis with sequelae of portal hypertension. Moderate diffuse anasarca and ascites. Diffuse colonic and small bowel wall thickening most likely due to portal enterocolopathy and less likely due to infectious / inflammatory process. Bilateral posterior lower lobe consolidation with air bronchograms concerning for pneumonia END IMPRESSION: ATED BY: ELIGIO PARSI DO DICTATED DATE/TIME: 05/25/24216 SIGNED BY: ELIGIO PARIS DO SIGNED DATE/TIME: 05/25/24216 CC: DIAGNOSTIC IMAGING Diagnostic Imaging Report : [id number] Signed PATIENT: RONEY ROWAN ACCT: [id number] UNIT: [id number] : 1965 LOC: TELE ROOM / BED: [address] [place] [address] AGE / SEX: 58 / M ADM STATUS: ADM IN SERVICE 0704 ORDERING PHYSICIAN: DARNELL MEADE MD PROCEDURE(s): ABDL - ABDOMEN LIMITED REASON: FLUID CHECK FOR POSSIBLE PARACENTESIS ORDER NUMBER(s): [id number], ACCESSION NUMBER(s): [id number] ULTRASOUND ABDOMEN limited, 4 QUADRANTS INDICATION: FLUID CHECK FOR POSSIBLE PARACENTESIS Evaluate for ascites. TECHNIQUE: The four quadrants of the abdomen were scanned in hamm-scale to assess for the presence of ascites. No solid organ assessment was performed. FINDINGS/IMPRESSIONS: There is small to moderate volume ascites in all 4 abdominal quadrants. Bilateral pleural effusions are present. HS:Y ATED BY: LUIZ CARREON DO DICTATED DATE/TIME: 05/25/24754 SIGNED BY: LUIZ CARREON DO SIGNED DATE/TIME: 05/25/24 075 CC: DIAGNOSTIC IMAGING Diagnostic Imaging Report : [id number] Signed PATIENT: RONEY ROWAN ACCT: [id number] UNIT: [id number] : 1965 LOC: TELE ROOM / BED: [address] [place] [address] AGE / SEX: 58 / M ADM STATUS: ADM IN SERVICE 0955 ORDERING PHYSICIAN: RANDALL PALOMARES MD PROCEDURE(s): PARAC - PARACENTESIS REASON: ASCITES ORDER NUMBER(s): [id number], ACCESSION NUMBER(s): [id number] US PARACENTESIS, HISTORY: ASCITES PROCEDURE: Informed consent was obtained. The patient was placed in supine position. A limited localization ultrasound of the abdomen was obtained, and the skin site over the largest pocket of fluid was marked and entry site was prepped with chlorhexidine which was allowed to dry and draped in the usual sterile fashion. Time out was performed. Following administration of 1% lidocaine local anesthetic, a 5 Armenian centesis needle catheter was percutaneously inserted into the peritoneal collection until fluid was aspirated. The catheter was advanced into the fluid collection and the needle removed. About 6000 cc of fluid was aspirated and specimen sent for appropriate cultures/cytology/cultures and cytology. The catheter was then removed and a sterile dressing applied. No immediate complication was identified. FINDINGS: Limited ultrasound imaging demonstrates moderate ascites. Aspirated fluid was clear and serous. IMPRESSION: US-guided paracentesis with 6L removed. ATED BY: DARNELL MEADE MD DICTATED DATE/TIME: 05/25/241131 SIGNED BY: DARNELL MEADE MD SIGNED DATE/TIME: 05/25/24 113 CC: DIAGNOSTIC IMAGING Diagnostic Imaging Report : [id number] Signed PATIENT: RONEY ROWAN ACCT: [id number] UNIT: [id number] : 1965 LOC: TELE ROOM / BED: [address] [place] [address] AGE / SEX: 58 / M ADM STATUS: ADM IN SERVICE 115 ORDERING PHYSICIAN: QUAN RICHMOND PROCEDURE(s): HWOCT - HEAD WITHOUT CONTRAST REASON: ALOC ORDER NUMBER(s): [id number], ACCESSION NUMBER(s): [id number] EXAM: CT HEAD WITHOUT CONTRAST INDICATION: ALOC TECHNIQUE: CT of the head without intravenous contrast. Radiation Dose Information: CT Dose: CTDI volume is 62 mGy. Dose-length product is 1207.16 mGy*cm The dose indicators for CT are the volume Computed Tomography (CT) Dose Index (CTDIvol) and the Dose Length Product (DLP), and are measured in units of mGy and mGy-cm, respectively. These indicators are not patient dose, but values generated from the CT scanner acquisition factors. The report includes radiation exposure data for exposures received during this examination. COMPARISON: None FINDINGS: There is no evidence of acute intracranial hemorrhage, extra-axial collection, mass effect, midline shift, herniation or hydrocephalus. The ventricles, sulci and cisterns are age appropriate. The davis-white differentiation is intact. The visualized paranasal sinuses and mastoid air cells are clear. The surrounding soft tissues and osseous structures are unremarkable. IMPRESSION: 1. No acute intracranial abnormality. ATED BY: ELY AMAYA MD DICTATED DATE/TIME: 05/26/24402 SIGNED BY: ELY AMAYA MD SIGNED DATE/TIME: 01/04/25 0403 CC: DIAGNOSTIC IMAGING Diagnostic Imaging Report : [id number] Signed PATIENT: RONEY ROWAN ACCT: [id number] UNIT: [id number] : 1965 LOC: TELE ROOM / BED: [address] [place] [address] AGE / SEX: 58 / M ADM STATUS: ADM IN SERVICE 1355 ORDERING PHYSICIAN: QUAN RICHMOND PROCEDURE(s): CXR1 - CHEST XRAY 1 VIEW REASON: SOB ORDER NUMBER(s): [id number], ACCESSION NUMBER(s): [id number] CHEST RADIOGRAPH Indication: SOB Technique: Single frontal view of the chest was obtained COMPARISON: XY CHEST PORTABLE on DOS: 05/24/24 FINDINGS: Lines and Tubes: Right tunneled central venous catheter in satisfactory position. Lungs: Multifocal airspace disease. Pleura: No effusion. No pneumothorax. Cardiomediastinal contours: Unremarkable Bones: Unremarkable IMPRESSION: Multifocal airspace disease versus pulmonary vascular congestion. ATED BY: ADRIANO MOSQUERA MD DICTATED DATE/TIME: 05/25/24 1228 SIGNED BY: ADRIANO MOSQUERA MD SIGNED DATE/TIME: 05/25/24 1228 CC: Signed PATIENT: RONEY ROWAN ACCT: [id number] UNIT: [id number] : 1965 LOC: TELE ROOM / BED: [address] [place] [address] AGE / SEX: 58 / M ADM STATUS: ADM IN SERVICE 0400 ORDERING PHYSICIAN: QUAN RICHMOND PROCEDURE(s): CXR1 - CHEST XRAY 1 VIEW REASON: SOB ORDER NUMBER(s): [id number], ACCESSION NUMBER(s): [id number] CHEST RADIOGRAPH Indication: SOB Technique: Single frontal view of the chest was obtained Comparison: XY CHEST XRAY 1 VIEW on DOS: 05/25/24, XY CHEST PORTABLE on DOS: 05/24/24 IMPRESSION: The heart is prominent in size. Patchy airspace opacities in the right lower lung have increased with persistent opacity in the left perihilar lung. Likely small right pleural effusion. No pneumothorax. Right dialysis catheter tip in the superior vena cava. ATED BY: ELY AMAYA MD DICTATED DATE/TIME: 05/26/24540 SIGNED BY: ELY AMAYA MD SIGNED DATE/TIME: 05/26/24540 CC: Condition at Discharge: Stable Final Diagnosis/Problems List Metabolic likely due to ESRD/pneumonia Acute hypoxic respiratory failure Acute hypoxic respiratory failure likely due to volume overload in the setting of missed HD and decompensated liver cirrhosis Bilateral pleural effusion likely due to ESRD/heart failure Acute pneumonia Gram-positive versus Gram-negative Influenza type B Recurrent hypoglycemic episode, emergently treated, resolved Hypertension Heart failure with preserved ejection fraction Cirrhosis of liver,ruled out decompensated cirrhosis of liver-as per woven label designer Suspected spontaneous bacterial peritonitis Rebound ascites Pneumonia bacterial versus viral Diabetes mellitus type 2 Moderately severe anemia likely due to ESRD Fragile skin with some ecchymosis Respiratory acidosis Hypoalbuminemia Hyperkalemia likely due to ESRD Hyperammonemia likely due to cirrhosis of liver Acites S/P paracentesis Patient had HD During hospitalization Discharge Disposition: Home Discharge Instruct/Medications Diet: Consistent carbohydrate, Cardiac 2g Na,low cholest (2 gm sodium, low cholesterol), Renal Activity: No Restrictions, As Tolerated Follow Up/Referral: Follow up with PCP in 1-2 weeks F/Up with Nephrology for Dialysis, M/W/F Medications: Tamiflu 75 mg BID X 3 days Azithromycin 250 mg for 3 days Resume home medications. Discharge Statement: "Patient was advised to return to the ER or call 911 if any headaches, dizziness, shortness of breath, chest pain, abdominal pain, bleeding, fevers, or worsening of medical condition. Patient was counseled about treatment plan, medications, possible side effects, patientverbalized understanding. All questions were answered to the best of my ability. This discharge took greater then 30 minutes in planning, reviewing documentation, counseling the patient, and discussing with other team members." ASSESSMENT ASSESSMENT Assessment Metabolic/Toxic Encephalopathy due to uremia Acites S/P paracentesis Date of Service: May 28, 2024 Billing Provider: FLORA QUINONEZ MD Common Visit Codes: 04383-UDJ/OBS DISCH DAY >30min QUAN RICHMOND May 28, 2024 14:38 FLORA QUINONEZ MD May 28, 2024 19:31
--- NOTE | 2024-05-28 15:39 | DVHPN2 ---
Progress Note Date Seen: May 28, 2024 Medical Necessity Reason Pt with a Central, PICC or Fol: No Subjective Patient reports: No new complaints Objective vital signs Vital Sign Date Time Temp Pulse Resp B/P (MAP) Pulse Ox O2 Delivery O2 Flow Rate FiO2 05/28/24 13:02 36.6 90 17 97 05/28/24 12:52 136/84 (101) 05/28/24 09:04 2.0 05/28/24 08:42 Nasal Cannula* 28 Total Intake and Output 05/27/24 05/27/24 05/28/24 15:00 23:00 07:00 Intake Total 250 ml 675 ml 320 ml Output Total 600 ml 100 ml Balance 250 ml 75 ml 220 ml laboratory and microbiology Laboratory Tests 05/28/24 10:00 Test 05/28/24 10:00 Range/Units Serum Glucose 168 H 74-106 mg/dL Microbiology Date/Time Source Procedure Growth Status 05/26/24 23:55 Nose MRSA Screen - Final Complete 05/25/24 10:35 Ascities Fluid Gram Stain - Final Resulted 05/25/24 10:35 Ascities Fluid Body Fluid Culture - Preliminary Resulted 05/24/24 21:08 Blood Blood Culture - Preliminary NO GROWTH AFTER 72 HOURS OF INCUBATION. Resulted Problem List/Assessment/Plan Problem List/Assessment/Plan EVE on Ckd currently on dialysis b/c not recovered from HRS in 04/2024 noncompliance with dialysis hyperkalemia CHF decompensated cirrhosis jaundice anemia fluid overload ascites hep C recs Patient wants to get discharged he wants to go to dialysis at 4:00 p.m. today as outpatient Positive flu I have called and informed his outpatient unit and confirmed chair time at 4pm Plan discussed with: Patient Dietary Evaluation Review Comments: 1. Continue current diet 2. Consider David Bid (180kcal, 5g pro) for wound healing if medically appropriate 3. Consider Nepro TID (1260kcal, 57g pro) for increasing po intake Expected Outcomes/Goals: 1. pt will consume >75% of esimated needs within 3-5 days CC Plasma Assessment Blood Product Administration S: 1100 FARZAD MOSQUEDA MD May 28, 2024 15:39
[2024-05-28] MEDS ORDERED: EPOETIN ALFA-EPBX 10,000 UNIT/1ML VIAL SC SCH (21:00)
[2024-05-29] MEDS ORDERED: NICOTINE 21MG/24 HR TOPICAL PATCH TD SCH (10:00)
== END 2024-05-28 14:45 | disposition home or self-care (01) | DRG 137 ==
LOC: ER 19:31 → EDBD 19:31 → TELE 23:01 → TELE-EAST 05-26 22:37
PROVIDERS: ADMIT Internal Medicine Geriatric Medicine; ATTEND Internal Medicine Geriatric Medicine
PROC: 0W9G3ZZ Drainage of Peritoneal Cavity, Percutaneous Approach (ICD-10-PCS; 2024-05-25)
PROC: 5A09357 Assistance with Respiratory Ventilation, Less than 24 Consecutive Hours, Continuous Positive Airway Pressure (ICD-10-PCS; 2024-05-25)
PROC: 30233N1 Transfusion of Nonautologous Red Blood Cells into Peripheral Vein, Percutaneous Approach (ICD-10-PCS; principal; 2024-05-26)
PROC: 5A09357 Assistance with Respiratory Ventilation, Less than 24 Consecutive Hours, Continuous Positive Airway Pressure (ICD-10-PCS; 2024-05-26)
DX: J15.69 Pneumonia due to other Gram-negative bacteria (principal); J96.01 Acute respiratory failure with hypoxia; G93.41 Metabolic encephalopathy; I13.2 Hypertensive heart and chronic kidney disease with heart failure and with stage 5 chronic kidney disease, or end stage renal disease; K65.2 Spontaneous bacterial peritonitis; I50.30 Unspecified diastolic (congestive) heart failure; K76.6 Portal hypertension; K70.31 Alcoholic cirrhosis of liver with ascites; E87.29 Other acidosis; J10.00 Influenza due to other identified influenza virus with unspecified type of pneumonia; E87.5 Hyperkalemia; J10.08 Influenza due to other identified influenza virus with other specified pneumonia; E87.70 Fluid overload, unspecified; K76.82 Hepatic encephalopathy; E11.22 Type 2 diabetes mellitus with diabetic chronic kidney disease; D50.9 Iron deficiency anemia, unspecified; N18.6 End stage renal disease; E78.5 Hyperlipidemia, unspecified; J15.9 Unspecified bacterial pneumonia; J12.9 Viral pneumonia, unspecified; Z20.822 Contact with and (suspected) exposure to COVID-19; R58 Hemorrhage, not elsewhere classified; J96.02 Acute respiratory failure with hypercapnia; N17.9 Acute kidney failure, unspecified; F17.210 Nicotine dependence, cigarettes, uncomplicated; Z99.2 Dependence on renal dialysis; Z78.9 Other specified health status; Z91.158 Patient's noncompliance with renal dialysis for other reason
CPT/HCPCS: 36415; 36600; 49083; 70450; 71045; 74176; 76705; 76942; 80048; 80053; 80061; 80074; 80307; 81001; 82140; 82270; 82728; 82805; 82962; 83036; 83540; 83550; 83605; 83735; 83880; 83986; 84100; 84132; 84443; 84484; 85007; 85025; 85027; 85610; 85730; 86803; 86850; 86900; 86901; 86922; 87040; 87081; 87205; 87340; 87426; 87804; 89051; 90935; 93005; 93458; 94640; 94660; 99291; G0378; G9035; J1815; J2470; P9047